=== PATIENT | male | born 1995 ===

== ENCOUNTER 2017-07-03 17:27 | Inpatient (IN) | payer OTHER ==
--- NOTE | 2017-07-03 18:14 | C.PDOC ---
History Of Present Illness <Marcy Woodward - Last Filed: 07/03/17 20:52> <Shanel Meek - Last Filed: 07/03/17 22:08> Patient presents to ED c/o body aches, headache, sore throat, fever x 2 days. He denies chest pain, SOB, abdominal pain, dysuria/hematuria. Admits to 1 episode of nausea/vomiting. (Marcy Woodward) History Per: Patient History/Exam Limitations: no limitations Onset/Duration Of Symptoms: Days (2) Location Of Pain: Throat, Diffuse Myalgias, Headache Associated Symptoms: Fever, Chills, Sore Throat, Nausea, Vomiting. denies: Cough, Nasal Congestion Severity: Moderate <Marcy Woodward - Last Filed: 07/03/17 20:52> <Shanel Meek - Last Filed: 07/03/17 22:08> Time Seen by Provider: 07/03/17 17:38 Chief Complaint (Nursing): Fever Past Medical History Reviewed: Historical Data, Nursing Documentation, Vital Signs - Medical History PMH: No Chronic Diseases Surgical History: No Surg Hx Family History: States: No Known Family Hx - Social History Hx Alcohol Use: No Hx Substance Use: No - Immunization History Hx Tetanus Toxoid Vaccination: No Hx Influenza Vaccination: No Hx Pneumococcal Vaccination: No <Marcy Woodward - Last Filed: 07/03/17 20:52> Vital Signs: Last Vital Signs Temp 98.2 F 07/03/17 21:50 Pulse 110 H 07/03/17 21:50 Resp 20 07/03/17 21:50 BP 109/70 07/03/17 21:50 Pulse Ox 99 07/03/17 21:50 Review Of Systems Except As Marked, All Systems Reviewed And Found Negative. Constitutional: Positive for: Fever, Chills, Other (myalgias/arthralgias) ENT: Positive for: Throat Pain Cardiovascular: Negative for: Chest Pain, Palpitations Respiratory: Negative for: Cough, Shortness of Breath Gastrointestinal: Positive for: Nausea, Vomiting. Negative for: Abdominal Pain , Diarrhea Genitourinary: Negative for: Dysuria, Hematuria <Marcy Woodward - Last Filed: 07/03/17 20:52> Physical Exam - Physical Exam Appears: Non-toxic, In Acute Distress (in moderate discomfort ) Skin: Other (warm to touch) Head: Normacephalic Nose: Normal Oral Mucosa: Moist Throat: Erythema, Exudate (B/L ), No Drooling, No Mass, Other (uvula normal and midline in appearance, tonsils swollen B/L ) Neck: Supple, Other (no meningismus) Cardiovascular: Rhythm Regular (tachycardic and regular) Respiratory: Normal Breath Sounds, No Rales, No Rhonchi, No Wheezing Gastrointestinal/Abdominal: Normal Exam, Bowel Sounds, Soft, No Tenderness Neurological/Psych: Oriented x3 <Marcy Woodward - Last Filed: 07/03/17 20:52> ED Course And Treatment - Laboratory Results Result Diagrams: 07/03/17 19:42 07/03/17 19:42 ECG: Interpreted By Me, Viewed By Me (sinus tachcardia 146bpm, normal axis, no acute ST/T wave changes) ECG Interpretation: Abnormal O2 Sat by Pulse Oximetry: 100 (RA) Pulse Ox Interpretation: Normal - Radiology CXR: Interpreted by Me, Viewed By Me CXR Interpretation: Yes: No Acute Disease. No: Infiltrates Progress Note: Patient given PO tylenol, PO fluids. Influenza and strep swabs ordered. When reassessed, patient continued to be tachycardic and febrile. Blood work, CXR, UA ordered and reviewed. Patient given IV NS bolus, IV toradol , IM decadron, IV zofran. Suspect pharyngitis - tonsils are large, erythematous with exudated B/L - PO Amoxicillin given. <Marcy Woodward - Last Filed: 07/03/17 20:52> - Laboratory Results Result Diagrams: 07/03/17 19:42 07/03/17 19:42 <Shanel Meek - Last Filed: 07/03/17 22:08> Medical Decision Making <Marcy Woodward - Last Filed: 07/03/17 20:52> <Shanel Meek - Last Filed: 07/03/17 22:08> Medical Decision Making: NS IVF continued. The patient was found to have WBC of 0.2, and neutropenic. Patient placed on isolation. HIV and [place]-spot ordered. The case was discussed with Dr. Babb (hospitalist oncall) who agrees to admit the patient to his service. (Shanel Meek) Disposition <Marcy Woodward - Last Filed: 07/03/17 20:52> - Disposition Disposition Time: 20:16 - POA Present On Arrival: None <Shanel Meek - Last Filed: 07/03/17 22:08> - Disposition Disposition: HOSPITALIZED Condition: STABLE - Clinical Impression Clinical Impression: Hypokalemia, Leukopenia, Tachycardia, Neutropenia, Influenza-like illness
[2017-07-03] MEDS ORDERED: Sodium Chloride 0.9% 1,000 ML IV ONE ×2 (18:27→19:06)
[2017-07-03] MEDS ORDERED: Dexamethasone 4 mg/1 ml IM STA (18:31)
[2017-07-03] MEDS ORDERED: Sodium Chloride 0.9% 1,000 ML ONE ×2 (18:49→19:17)
[2017-07-03] MEDS ORDERED: Dexamethasone 4 mg/1 ml ONE (18:49)
[2017-07-03 19:17] LABS: RBC URINE 3 /hpf (0-3); URINE BACTERIA RARE (<OCC); URINE BILIRUBIN NEGATIVE (NEGATIVE); URINE BLOOD NEGATIVE (NEGATIVE); URINE GLUCOSE (UA) NORMAL (Normal); URINE KETONE TRACE mg/dL (NEGATIVE); URINE LEUKOCYTE ESTERASE NEG Leu/uL (Negative); URINE PROTEIN 2+ mg/dL (NEGATIVE); WBC URINE 1 /hpf (0-5)
[2017-07-03 19:18] LABS: URINE COLOR YELLOW (YELLOW)
[2017-07-03 19:45] LABS: HEMATOCRIT 38.2 % (35.0-51.0); MEAN CELL VOLUME 91.3 fL (80.0-94.0); MEAN CORPUSCULAR HEMOGLOBIN 32.1 pg (27.0-31.0); MEAN CORPUSCULAR HGB CONC 35.2 g/dL (33.0-37.0); MEAN PLATELET VOLUME 7.5 fL (7.2-11.7); PLATELET COUNT 215 K/uL (130-400); RED CELL DISTRIBUTION WIDTH 12.3 % (11.5-14.5)
[2017-07-03 19:53] LABS: WHITE BLOOD COUNT 0.2 K/uL (4.8-10.8)
[2017-07-03 20:09] LABS: BLOOD UREA NITROGEN 16 mg/dL (9-20); CALCIUM 7.4 mg/dl (8.6-10.4); CARBON DIOXIDE 19 mmol/L (22-30); CHLORIDE 103 mmol/L (98-107); GFR AFRICAN-AMERICAN > 60; GLUCOSE,RANDOM 137 mg/dL (75-110); POTASSIUM 2.9 mmol/L (3.6-5.2); SODIUM 130 mmol/L (132-148)
[2017-07-03 20:18] LABS: REACTIVE LYMPHOCYTES 16 % (0-0); TOTAL CELLS COUNTED 100
[2017-07-03] MEDS ORDERED: Potassium Chloride 20 mEq ER Tab PO STA (20:19)
[2017-07-03 20:20] LABS: GIANT PLATELETS PRESENT
[2017-07-03 20:21] LABS: LARGE PLATELETS PRESENT; PLATELET CLUMPS PRESENT
--- NOTE | 2017-07-03 22:16 | CP.PCM.HP ---
<Joselyn Reynolds - Last Filed: 07/04/17 05:43> History of Present Illness - History of Present Illness History of Present Illness: CC: Sore throat HPI: patient is a 21M with no significant PMH who presents c/o sore throat. Patient says he woke up with a sore throat yesterday morning and he describes it as burning 6/10 pain made worse by swallowing. Patient says he has not tried anything that has made it better but he did take tamiflu earlier today. Patient also admits to headache but when questioned further he describes it as frontal and maxillary sinus pain. He also admits to associated fever, chills, weakness, body aches, lower back pain radiating to his hamstrings, dizziness upon standing , palpitations, dyspnea, nausea, and vomiting x1. He denies blood in the vomit and says he vomited up the food he ate. Of note, patient says he recently got a new tattoo and has had another one on the opposite arm for a while. He denies ear pain, changes in vision or hearing, chest pain, cough, abdominal pain, diarrhea, constipation, blood in urine and stool, dysuria, calf pain, LE swelling/numbness/tingling, rashes, easy bruising, recent travel, recent sick contacts, changes in his weight, and tick bites. PMD: denies Allergies: denies PMH: Denies PSH: Denies Meds: Denies FH: ME (father) SH: Social drinker, denies tobacco and drug use Present on Admission - Present on Admission Any Indicators Present on Admission: No Review of Systems - Review of Systems All systems: reviewed and no additional remarkable complaints except (as per HPI ) Past Patient History - Past Social History Smoking Status: Never Smoked - PSYCHIATRIC Hx Substance Use: No - SURGICAL HISTORY Hx Surgeries: No Meds Allergies/Adverse Reactions: Allergies Allergy/AdvReac Type Severity Reaction Status Date / Time No Known Allergies Allergy Unverified 07/03/17 17:30 Physical Exam - Constitutional Appears: Non-toxic, No Acute Distress - Head Exam Head Exam: ATRAUMATIC, NORMOCEPHALIC - Eye Exam Eye Exam: EOMI, Normal appearance, PERRL - ENT Exam ENT Exam: Mucous Membranes Moist Additional comments: tonsils enlarged and slightly erythematous but no erosions or exudates noted in oropharynx - Neck Exam Neck exam: Positive for: Tenderness. Negative for: Lymphadenopathy - Respiratory Exam Respiratory Exam: Clear to Auscultation Bilateral, Rales, Rhonchi, NORMAL BREATHING PATTERN. absent: Accessory Muscle Use, Wheezes, Respiratory Distress , Stridor - Cardiovascular Exam Cardiovascular Exam: Tachycardia, REGULAR RHYTHM, +S1, +S2. absent: Bradycardia , Diastolic murmur, Gallop, Rubs, Systolic Murmur - GI/Abdominal Exam GI & Abdominal Exam: Normal Bowel Sounds, Soft. absent: Distended, Guarding, Tenderness - Extremities Exam Extremities exam: Positive for: normal capillary refill, normal inspection, pedal pulses present. Negative for: joint swelling, pedal edema, tenderness Additional comments: no inguinal or axillary lymphadenopathy - Neurological Exam Neurological exam: Alert, Oriented x3 - Psychiatric Exam Psychiatric exam: Normal Affect, Normal Mood - Skin Skin Exam: Dry, Intact, Normal Color, Warm Results - Vital Signs Recent Vital Signs: Last Vital Signs Temp 98.2 F 07/03/17 21:50 Pulse 110 H 07/03/17 21:50 Resp 20 07/03/17 21:50 BP 109/70 07/03/17 21:50 Pulse Ox 99 07/03/17 21:50 - Labs Result Diagrams: 07/03/17 19:42 07/03/17 19:42 Labs: Laboratory Results - last 24 hr 07/03/17 07/03/17 07/03/17 18:06 18:06 19:10 WBC RBC Hgb Hct MCV MCH MCHC RDW Plt Count MPV Neutrophils % (Manual) Lymphocytes % (Manual) Reactive Lymphs % Monocytes % (Manual) Platelet Estimate Plt Clumps, EDTA Large Platelets Giant Platelets Anisocytosis (manual) Macrocytosis (manual) Sodium Potassium Chloride Carbon Dioxide Anion Gap BUN Creatinine Est GFR ( Amer) Est GFR (Non-Af Amer) Random Glucose Lactic Acid Calcium Urine Color Yellow Urine Clarity Clear Urine pH 7.0 Ur Specific [place] 1.029 Urine Protein 2+ H Urine Glucose (UA) Normal Urine Ketones Trace Urine Blood Negative Urine Nitrate Negative Urine Bilirubin Negative Urine Urobilinogen 4.0 Ur Leukocyte Esterase Neg Urine WBC (Auto) 1 Urine RBC (Auto) 3 Urine Bacteria Rare Infectious [place] Assay Influenza Typ A,B (EIA) Negative for flu a/b Grp A Beta Strep Ag Negative 07/03/17 07/03/1717 19:42 19:42 21:13 WBC 0.2 L* RBC 4.18 L Hgb 13.4 Hct 38.2 MCV 91.3 MCH 32.1 H MCHC 35.2 RDW 12.3 Plt Count 215 MPV 7.5 Neutrophils % (Manual) TEST NOT PERFORMED Lymphocytes % (Manual) 82 H Reactive Lymphs % 16 H Monocytes % (Manual) 2 Platelet Estimate Normal Plt Clumps, EDTA Present Large Platelets Present Giant Platelets Present Anisocytosis (manual) Slight Macrocytosis (manual) Slight Sodium 130 L Potassium 2.9 L Chloride 103 Carbon Dioxide 19 L Anion Gap 11 BUN 16 Creatinine 1.2 Est GFR ( Amer) > 60 Est GFR (Non-Af Amer) > 60 Random Glucose 137 H Lactic Acid 0.7 Calcium 7.4 L Urine Color Urine Clarity Urine pH Ur Specific [place] Urine Protein Urine Glucose (UA) Urine Ketones Urine Blood Urine Nitrate Urine Bilirubin Urine Urobilinogen Ur Leukocyte Esterase Urine WBC (Auto) Urine RBC (Auto) Urine Bacteria Infectious [place]berry Assay Influenza Typ A,B (EIA) Grp A Beta Strep Ag 07/03/17 21:30 WBC RBC Hgb Hct MCV MCH MCHC RDW Plt Count MPV Neutrophils % (Manual) Lymphocytes % (Manual) Reactive Lymphs % Monocytes % (Manual) Platelet Estimate Plt Clumps, EDTA Large Platelets Giant Platelets Anisocytosis (manual) Macrocytosis (manual) Sodium Potassium Chloride Carbon Dioxide Anion Gap BUN Creatinine Est GFR ( Amer) Est GFR (Non-Af Amer) Random Glucose Lactic Acid Calcium Urine Color Urine Clarity Urine pH Ur Specific [place] Urine Protein Urine Glucose (UA) Urine Ketones Urine Blood Urine Nitrate Urine Bilirubin Urine Urobilinogen Ur Leukocyte Esterase Urine WBC (Auto) Urine RBC (Auto) Urine Bacteria Infectious [place] Assay Negative Influenza Typ A,B (EIA) Grp A Beta Strep Ag Assessment & Plan - Assessment and Plan (Free Text) Plan: Neutropenic fever * SIRS criteria met * ID consulted ([facility]) - recs appreciated * Heme/Onc conulted ([facility]) - recs appreciated * CXR * ABG * Lactate: 0.7 * HIV * LDH * Blood Culture * Throat culture * Urine culture * UA: 2+ protein * Newberry: negative * Strep: negative * Flu negative * Lyme * NS @ 100 * Meds: Zosyn 4.5 g IV Q6h, Granix 480 mcg SC Once, Tylenol PRN fever Sore throat * Cepacol PRN * See above management Hypokalemia * 2.9 in ED * replaced * monitor Hyperbilirubinemia * Hep panel Prophylactic measures * Pepcid * Ambulates * Zofran PRN nausea <Sidney Babb A - Last Filed: 07/04/17 06:18> Results - Vital Signs Recent Vital Signs: Last Vital Signs Temp 98 F 07/04/17 00:20 Pulse 114 H 07/04/17 00:20 Resp 20 07/04/17 00:20 BP 125/74 07/04/17 00:20 Pulse Ox 98 07/04/17 00:20 - Labs Result Diagrams: 07/03/17 19:42 07/03/17 19:42 Labs: Laboratory Results - last 24 hr 07/03/17 07/03/17 07/03/17 18:06 18:06 19:10 WBC RBC Hgb Hct MCV MCH MCHC RDW Plt Count MPV Neutrophils % (Manual) Lymphocytes % (Manual) Reactive Lymphs % Monocytes % (Manual) Platelet Estimate Plt Clumps, EDTA Large Platelets Giant Platelets Anisocytosis (manual) Macrocytosis (manual) Puncture Site pCO2 pO2 HCO3 ABG pH ABG Total CO2 ABG O2 Saturation ABG Base Excess ABG Hemoglobin ABG Carboxyhemoglobin POC ABG HHb (Measured) ABG Methemoglobin Ruperto Test A-a O2 Difference Respiratory Index Hgb O2 Saturation Liter Flow FiO2 Sodium Potassium Chloride Carbon Dioxide Anion Gap BUN Creatinine Est GFR ( Amer) Est GFR (Non-Af Amer) Random Glucose Lactic Acid Calcium Total Bilirubin Direct Bilirubin AST ALT Alkaline Phosphatase Lactate Dehydrogenase Total Protein Albumin Globulin Albumin/Globulin Ratio Urine Color Yellow Urine Clarity Clear Urine pH 7.0 Ur Specific [place] 1.029 Urine Protein 2+ H Urine Glucose (UA) Normal Urine Ketones Trace Urine Blood Negative Urine Nitrate Negative Urine Bilirubin Negative Urine Urobilinogen 4.0 Ur Leukocyte Esterase Neg Urine WBC (Auto) 1 Urine RBC (Auto) 3 Urine Bacteria Rare Infectious [place] Assay Influenza Typ A,B (EIA) Negative for flu a/b Grp A Beta Strep Ag Negative 07/03/17 07/03/17 07/03/17 19:42 19:42 21:13 WBC 0.2 L* RBC 4.18 L Hgb 13.4 Hct 38.2 MCV 91.3 MCH 32.1 H MCHC 35.2 RDW 12.3 Plt Count 215 MPV 7.5 Neutrophils % (Manual) TEST NOT PERFORMED Lymphocytes % (Manual) 82 H Reactive Lymphs % 16 H Monocytes % (Manual) 2 Platelet Estimate Normal Plt Clumps, EDTA Present Large Platelets Present Giant Platelets Present Anisocytosis (manual) Slight Macrocytosis (manual) Slight Puncture Site pCO2 pO2 HCO3 ABG pH ABG Total CO2 ABG O2 Saturation ABG Base Excess ABG Hemoglobin ABG Carboxyhemoglobin POC ABG HHb (Measured) ABG Methemoglobin Ru[place]to Test A-a O2 Difference Respiratory Index Hgb O2 Saturation Liter Flow FiO2 Sodium 130 L Potassium 2.9 L Chloride 103 Carbon Dioxide 19 L Anion Gap 11 BUN 16 Creatinine 1.2 Est GFR ( Amer) > 60 Est GFR (Non-Af Amer) > 60 Random Glucose 137 H Lactic Acid 0.7 Calcium 7.4 L Total Bilirubin Direct Bilirubin AST ALT Alkaline Phosphatase Lactate Dehydrogenase Total Protein Albumin Globulin Albumin/Globulin Ratio Urine Color Urine Clarity Urine pH Ur Specific [place] Urine Protein Urine Glucose (UA) Urine Ketones Urine Blood Urine Nitrate Urine Bilirubin Urine Urobilinogen Ur Leukocyte Esterase Urine WBC (Auto) Urine RBC (Auto) Urine Bacteria Infectious [place] Assay Influenza Typ A,B (EIA) Grp A Beta Strep Ag 07/03/17 07/03/17 07/03/17 21:30 23:03 23:41 WBC RBC Hgb Hct MCV MCH MCHC RDW Plt Count MPV Neutrophils % (Manual) Lymphocytes % (Manual) Reactive Lymphs % Monocytes % (Manual) Platelet Estimate Plt Clumps, EDTA Large Platelets Giant Platelets Anisocytosis (manual) Macrocytosis (manual) Puncture Site Rr pCO2 29 L pO2 112 H HCO3 21.1 ABG pH 7.41 ABG Total CO2 19.3 L ABG O2 Saturation 99.2 H ABG Base Excess -4.9 L ABG Hemoglobin 14.4 ABG Carboxyhemoglobin 1.5 POC ABG HHb (Measured) 0.8 ABG Methemoglobin 1.1 Ruperto Test Pos A-a O2 Difference 1.0 Respiratory Index 0 Hgb O2 Saturation 96.6 Liter Flow 0 FiO2 21.0 Sodium Potassium Chloride Carbon Dioxide Anion Gap BUN Creatinine Est GFR ( Amer) Est GFR (Non-Af Amer) Random Glucose Lactic Acid Calcium Total Bilirubin 1.4 H Direct Bilirubin 1.1 H AST 38 ALT 34 Alkaline Phosphatase 44 Lactate Dehydrogenase 403 Total Protein 6.3 Albumin 3.5 Globulin 2.8 Albumin/Globulin Ratio 1.2 Urine Color Urine Clarity Urine pH Ur Specific [place] Urine Protein Urine Glucose (UA) Urine Ketones Urine Blood Urine Nitrate Urine Bilirubin Urine Urobilinogen Ur Leukocyte Esterase Urine WBC (Auto) Urine RBC (Auto) Urine Bacteria Infectious [place] Assay Negative Influenza Typ A,B (EIA) Grp A Beta Strep Ag Assessment & Plan - Assessment and Plan (Free Text) Plan: ADDENDUM: I saw and examined this patient shoulder to shoulder with Dr Reynolds. The assessment and plan represent my direct input. 21 years old male with 2 days hx of sorethroat, body aches, headache, lower back pain, fever, chills, nausea, vomits, dizziness, with Temp 102.5F and HR 140 /min, and WBC 0.2cells/microliter and 0% neutrophills. Newberry, Strep and Influenza negative. A&P #. Neutropenic Fever etiology unclear but probably viral in origin r/o leukemia - reverse Isolation - ID Consult - Hematology Consult - Antibiotics Zosyn - Granix - follow HIV antibody/ Lyme/blood and urine cultures/ebstein bar virus #. Hypokalemia. Repleted - Maintenance - Follow Electrolytes #. Trace ketones in urine Probably from vomiting and starvation. ABG shows normal Ph and normal lactate Sidney Babb MD Hospitalist - Date & Time Date: 07/04/17 Time: 06:18
[2017-07-03] MEDS: Piperacill/Tazo 4.5gm in Dex 4.5 GM/100 ML BAG IVPB SCH (22:37)
[2017-07-03 23:12] LABS: ALB/GLOB RATIO 1.2 (1.0-2.1); BILIRUBIN,TOTAL 1.4 mg/dL (0.2-1.3); TOTAL PROTEIN 6.3 g/dL (6.3-8.3)
[2017-07-03 23:13] LABS: BILIRUBIN,DIRECT 1.1 mg/dL (0.0-0.4)
[2017-07-03 23:44] LABS: ABG ALLEN TEST POS; ARTERIAL BLOOD HGB O2 SAT 96.6 % (95.0-98.0); CARBOXYHEMOGLOBIN 1.5 % (0.5-1.5); DRAW SITE RR; HHB 0.8 % (0.0-5.0); METHEMOGLOBIN 1.1 % (0.0-3.0)
[2017-07-03] MEDS: Sodium Chloride 0.9% 1,000 ML IV SCH (23:57)
[2017-07-04] MEDS: Piperacill/Tazo 4.5gm in Dex 4.5 GM/100 ML BAG IVPB SCH ×4 (03:15→21:36)
[2017-07-04] MEDS: Benzocaine/Menthol (Cepacol) Lozenge MT PRN ×3 (03:15→12:00)
[2017-07-04 07:38] LABS: EOS % 11.1 % (0.0-4.0); HEMATOCRIT 40.6 % (35.0-51.0); LYMPH # 0.1 K/uL (1.0-4.3); MEAN CORPUSCULAR HEMOGLOBIN 31.9 pg (27.0-31.0); MEAN CORPUSCULAR HGB CONC 33.9 g/dL (33.0-37.0); MONO % 11.1 % (0.0-10.0); RED CELL DISTRIBUTION WIDTH 12.6 % (11.5-14.5)
[2017-07-04 07:43] LABS: ALB/GLOB RATIO 1.1 (1.0-2.1); ALKALINE PHOSPHATASE 40 U/L (38-126); ALT/SGPT 35 U/L (21-72); AST/SGOT 17 U/L (17-59); BLOOD UREA NITROGEN 13 mg/dL (9-20); CALCIUM 7.7 mg/dl (8.6-10.4); CARBON DIOXIDE 20 mmol/L (22-30); CHLORIDE 104 mmol/L (98-107); GFR AFRICAN-AMERICAN > 60; GLUCOSE,RANDOM 126 mg/dL (75-110); MAGNESIUM 1.7 mg/dL (1.6-2.3); PHOSPHOROUS 1.1 mg/dL (2.5-4.5); POTASSIUM 3.3 mmol/L (3.6-5.2); SODIUM 131 mmol/L (132-148); TOTAL PROTEIN 6.3 g/dL (6.3-8.3)
[2017-07-04 07:46] LABS: MEAN CELL VOLUME 93.9 fL (80.0-94.0); WHITE BLOOD COUNT 0.2 K/uL (4.8-10.8)
[2017-07-04] MEDS: Potassium & Sodium Phosphate PO SCH ×3 (10:45→17:25)
[2017-07-04] MEDS: Potassium Chloride 20 mEq ER Tab PO SCH ×2 (11:03→17:25)
--- NOTE | 2017-07-04 11:34 | CP.PCM.CON ---
History of Present Illness - History of Present Illness History of Present Illness: 21 yo male with no PMH ADMITTED WITH SORE THROAT FEVER X 2DAYS AND FOUND TO HAVE SEVERE NEUTROPENIA NO KNOWN TRAVEL, PMH, FH OR WORKPLACE EXPOSURE - ONLY A NEW TATTOO TO CONT BROAD SPECTRUM ANTIBIOTICS, TELE MONITORING RECC CT SINUSES AND NECK WELL STAT ENT EVAL SEROLOGIES AND CULTURES SENT - MAY NEED BM BX 1M with no significant PMH who presents c/o sore throat- says he woke up with a sore throat yesterday morning and he describes it as burning 6/10 pain made worse by swallowing. he describes it as frontal and maxillary sinus pain. He also admits to associated fever, chills, weakness, body aches, lower back pain radiating to his hamstrings, dizziness upon standing, palpitations, dyspnea, nausea, and vomiting x1. He denies blood in the vomit and says he vomited up the food he ate. Of note, patient says he recently got a new tattoo and has had another one on the opposite arm for a while. He denies ear pain, changes in vision or hearing, chest pain, cough, abdominal pain, diarrhea, constipation, blood in urine and stool, dysuria, calf pain, LE swelling/numbness/tingling, rashes, easy bruising, recent travel, recent sick contacts, changes in his weight, and tick bites. PMD: denies Allergies: denies PMH: Denies PSH: Denies Meds: Denies FH: ME (father) SH: Social drinker, denies tobacco and drug use Review of Systems - Review of Systems All systems: reviewed and no additional remarkable complaints except - Constitutional Constitutional: Anorexia, Chills, Fever, Malaise, Weakness - EENT Eyes: absent: As Per HPI, Blind Spots, Blurred Vision, Change in Vision, Decreased Night Vision, Diplopia, Discharge, Dry Eye, Exophthalmos, Floaters, Irritation, Itchy Eyes, Loss of Peripheral Vision, Pain, Photophobia, Requires Corrective Lenses, Sees Flashes, Spots in Vision, Tunnel Vision, Other Visual Disturbances, Loss of Vision, Other Ears: absent: As Per HPI, Decreased Hearing, Ear Discharge, Ear Pain, Tinnitus, Abnormal Hearing, Disequilibrium, Dizziness, Other Nose/Mouth/Throat: As Per HPI - Cardiovascular Cardiovascular: absent: As Per HPI, Acrocyanosis, Chest Pain, Chest Pain at Rest , Chest Pain with Activity, Claudication, Diaphoresis, Dyspnea, Dyspnea on Exertion, Edema, Irregular Heart Rhythm, Pain Radiating to Arm/Neck/Jaw, Leg Edema, Leg Ulcers, Lightheadedness, Orthopnea, Palpitations, Paroxysmal Nocturnal Dyspnea, Pedal Edema, Radiating Pain, Rapid Heart Rate, Slow Heart Rate, Syncope, Other - Respiratory Respiratory: absent: As Per HPI, Cough, Dyspnea, Hemoptysis, Dyspnea on Exertion , Wheezing, Snoring, Stridor, Pain on Inspiration, Chest Congestion, Excessive Mucous Production, Change in Mucous Color, Pain with Coughing, Other - Gastrointestinal Gastrointestinal: As Per HPI - Genitourinary Genitourinary: absent: As Per HPI, Change in Urinary Stream, Difficulty Urinating, Dysuria, Flank Pain, Hematuria, Pyuria, Nocturia, Urinary Incontinence, Urinary Frequency, Urinary Hesitance, Urinary Urgency, Voiding Freq/Small Amts, Freq UTI, Hx Renal/Bladder Calculi, Hx /Renal Surgery, Bladder Distension, Other - Musculoskeletal Musculoskeletal: absent: As Per HPI, Abnormal Gait, Arthralgias, Atrophy, Back Pain, Deformity, Joint Swelling, Limited Range of Motion, Loss of Height, Muscle Cramps, Muscle Weakness, Myalgias, Neck Pain, Numbness, Radiating Pain into Limb, Stiffness, Tingling, Other - Integumentary Integumentary: absent: As Per HPI, Acne, Alopecia, Bleeding Lesions, Change in Hair, Change in Nails, Change in Pigmentation, Changing Lesions, Dry Skin, Erythema, Furuncle, Hirsutism, Lesions, New Lesions, Non-Healing Lesions, Photosensitivity, Pruritus, Rash, Skin Pain, Skin Ulcer, Sores, Striae, Swelling , Unusual Bruising, Wounds, Jaundice, Other - Neurological Neurological: absent: As Per HPI, Abnormal Gait, Abnormal Hearing, Abnormal Movements, Abnormal Speech, Behavioral Changes, Burning Sensations, Confusion, Convulsions, Disequilibrium, Dizziness, Numbness, Focal Weakness, Frequent Falls , Headaches, Lack of Coordination, Loss of Vision, Memory Loss, Paresthesias, Radicular Pain, Restless Legs, Sensory Deficit, Syncope, Tingling, Tremor, Vertigo, Weakness, Other Visual Disturbances, Other - Psychiatric Psychiatric: absent: As Per HPI, Abnormal Sleep Pattern, Anhedonia, Anxiety, Auditory Hallucinations, Behavioral Changes, Change in Appetite, Change in Libido, Confusion, Depression, Difficulty Concentrating, Hallucinations, Homicidal Ideation, Hopelessness, Irritability, Memory Loss, Mood Swings, Panic Attacks, Paranoia, Suicidal Ideation, Visual Hallucinations, Tactile Hallucinations, Other - Endocrine Endocrine: absent: As Per HPI, Change in Body Appearance, Change in Libido, Cold Intolorance, Deepening of Voice, Excessive Sweating, Fatigue, Flushing, Heat Intolorance, Increase in Ring/Shoe/Hat Size, Palpitations, Polydipsia, Polyphagia, Polyuria, Other - Hematologic/Lymphatic Hematologic: absent: As Per HPI, Easy Bleeding, Easy Bruising, Lymphadenopathy, Other Past Patient History - Past Social History Smoking Status: Never Smoked - CARDIAC Hx Cardiac Disorders: No - PULMONARY Hx Respiratory Disorders: No - NEUROLOGICAL Hx Neurological Disorder: No - HEENT Hx HEENT Problems: No - RENAL Hx Chronic Kidney Disease: No - ENDOCRINE/METABOLIC Hx Endocrine Disorders: No - HEMATOLOGICAL/ONCOLOGICAL Hx Blood Disorders: No - INTEGUMENTARY Hx Dermatological Problems: No - MUSCULOSKELETAL/RHEUMATOLOGICAL Hx Musculoskeletal Disorders: No - GASTROINTESTINAL Hx Gastrointestinal Disorders: No - GENITOURINARY/GYNECOLOGICAL Hx Genitourinary Disorders: No - PSYCHIATRIC Hx Substance Use: No - SURGICAL HISTORY Hx Surgeries: No - ANESTHESIA Hx Anesthesia: No Meds Allergies/Adverse Reactions: Allergies Allergy/AdvReac Type Severity Reaction Status Date / Time No Known Allergies Allergy Unverified 07/03/17 17:30 - Medications Medications: Current Medications Acetaminophen (Tylenol 325mg Tab) 650 mg PO Q4 PRN PRN Reason: Fever >100.4 F Last Admin: 07/04/17 08:27 Dose: 650 mg Benzocaine/Menthol (Cepacol Sore Throat) 1 [place]ott [place] Q2 PRN PRN Reason: Sore Throat Last Admin: 07/04/17 05:15 Dose: 1 scott Famotidine (Pepcid) 20 mg PO BID RASHIDA Piperacillin Sod/Tazobactam Sod (Zosyn 4.5 Gm Iv Premix) 4.5 gm in 100 mls @ 200 mls/hr IVPB Q6H RASHIDA Last Admin: 07/04/17 09:15 Dose: 200 mls/hr Sodium Chloride (Sodium Chloride 0.9%) 1,000 mls @ 100 mls/hr IV .Q10H [facility] Last Admin: 07/03/17 23:57 Dose: 100 mls/hr Doxycycline Hyclate 100 mg/ (Sodium Chloride) 100 mls @ 100 mls/hr IVPB Q12H [facility] Ondansetron HCl (Zofran Inj) 4 mg IVP Q6 PRN PRN Reason: Nausea/Vomiting Pneumococcal Polyvalent Vaccine (Pneumovax 23 Vaccine) 0.5 ml IM .ONCE ONE Stop: 07/05/17 10:01 Potassium Chloride (K-Dur 20 Meq Er Tab) 40 meq PO BID [facility] Stop: 07/05/17 10:01 Potassium Phos/Sodium Phos (Neutra-Phos) 1 pkt PO TID [facility] Stop: 07/05/17 10:01 Saliva Substitute (First Magic Mouthwash) 1 ml PO ACHS [facility] Physical Exam - Constitutional Appears: Toxic, In Acute Distress - Head Exam Head Exam: NORMOCEPHALIC - Eye Exam Eye Exam: PERRL. absent: Scleral icterus - ENT Exam ENT Exam: Mucous Membranes Dry, Normal External Ear Exam - Neck Exam Neck exam: Positive for: Lymphadenopathy - Respiratory Exam Respiratory Exam: Decreased Breath Sounds, Clear to Auscultation Bilateral - Cardiovascular Exam Cardiovascular Exam: Tachycardia, REGULAR RHYTHM, +S1, +S2 - GI/Abdominal Exam GI & Abdominal Exam: Diminished Bowel Sounds, Soft. absent: Tenderness - Rectal Exam Rectal Exam: Deferred - Exam Exam: NORMAL INSPECTION - Extremities Exam Extremities exam: Negative for: pedal edema - Back Exam Back exam: absent: CVA tenderness (L), CVA tenderness (R) - Neurological Exam Neurological exam: Alert, CN II-XII Intact, Oriented x3, Reflexes Normal - Psychiatric Exam Psychiatric exam: Anxious, Normal Affect, Normal Mood - Skin Skin Exam: Dry Results - Vital Signs Recent Vital Signs: Last Vital Signs Temp 99.5 F 07/04/17 08:06 Pulse 114 H 07/04/17 08:06 Resp 20 07/04/17 08:06 BP 108/67 07/04/17 08:06 Pulse Ox 100 07/04/17 08:06 - Labs Result Diagrams: 07/05/17 06:51 07/05/17 06:51 Labs: Laboratory Results - last 24 hr 07/03/17 07/03/17 07/03/17 18:06 18:06 19:10 WBC RBC Hgb Hct MCV MCH MCHC RDW Plt Count MPV Neut % (Auto) Lymph % (Auto) Adams % (Auto) Eos % (Auto) Baso % (Auto) Neut # Lymph # Adams # Eos # Baso # Total Counted Neutrophils % (Manual) Band Neutrophils % Lymphocytes % (Manual) Reactive Lymphs % Monocytes % (Manual) Eosinophils % (Manual) Basophils % (Manual) Metamyelocytes % Myelocytes % Promyelocytes % Blast Cells % Plasma Cell % (Manual) Nucleated RBC % Hypersegmented Polys Smudge Cells Toxic Granulation Dohle Bodies Malou Rods Platelet Estimate Plt Clumps, EDTA Large Platelets Giant Platelets RBC Morphology Polychromasia Hypochromasia (manual) Poikilocytosis (manual Basophilic Stippling Anisocytosis (manual) Microcytosis (manual) Macrocytosis (manual) Spherocytes Sickle Cells Target Cells Tear Drop Cells Ovalocytes Stomatocytes Helmet Cells [place] Bodies Krishna Cells Acanthocytes (Spur) Rouleaux Schistocytes Puncture Site pCO2 pO2 HCO3 ABG pH ABG Total CO2 ABG O2 Saturation ABG Base Excess ABG Hemoglobin ABG Carboxyhemoglobin POC ABG HHb (Measured) ABG Methemoglobin Ruperto Test A-a O2 Difference Respiratory Index Hgb O2 Saturation Liter Flow FiO2 Sodium Potassium Chloride Carbon Dioxide Anion Gap BUN Creatinine Est GFR ( Amer) Est GFR (Non-Af Amer) Random Glucose Lactic Acid Calcium Phosphorus Magnesium Total Bilirubin Direct Bilirubin AST ALT Alkaline Phosphatase Lactate Dehydrogenase Total Protein Albumin Globulin Albumin/Globulin Ratio Urine Color Yellow Urine Clarity Clear Urine pH 7.0 Ur Specific [place] 1.029 Urine Protein 2+ H Urine Glucose (UA) Normal Urine Ketones Trace Urine Blood Negative Urine Nitrate Negative Urine Bilirubin Negative Urine Urobilinogen 4.0 Ur Leukocyte Esterase Neg Urine WBC (Auto) 1 Urine RBC (Auto) 3 Urine Bacteria Rare Hepatitis A IgM Ab Hep Bs Antigen Hep B Core IgM Ab Hepatitis C Antibody HIV 1&2 Antibody Screen Infectious Adams Assay Influenza Typ A,B (EIA) Negative for flu a/b Grp A Beta Strep Ag Negative 07/03/17 07/03/17 07/03/17 19:42 19:42 21:13 WBC 0.2 L* RBC 4.18 L Hgb 13.4 Hct 38.2 MCV 91.3 MCH 32.1 H MCHC 35.2 RDW 12.3 Plt Count 215 MPV 7.5 Neut % (Auto) Lymph % (Auto) Adams % (Auto) Eos % (Auto) Baso % (Auto) Neut # Lymph # Adams # Eos # Baso # Total Counted Neutrophils % (Manual) TEST NOT PERFORMED Band Neutrophils % Lymphocytes % (Manual) 82 H Reactive Lymphs % 16 H Monocytes % (Manual) 2 Eosinophils % (Manual) Basophils % (Manual) Metamyelocytes % Myelocytes % Promyelocytes % Blast Cells % Plasma Cell % (Manual) Nucleated RBC % Hypersegmented Polys Smudge Cells Toxic Granulation Dohle Bodies Malou Rods Platelet Estimate Normal Plt Clumps, EDTA Present Large Platelets Present Giant Platelets Present RBC Morphology Polychromasia Hypochromasia (manual) Poikilocytosis (manual Basophilic Stippling Anisocytosis (manual) Slight Microcytosis (manual) Macrocytosis (manual) Slight Spherocytes Sickle Cells Target Cells Tear Drop Cells Ovalocytes Stomatocytes Helmet Cells [place] Bodies [place] Cells Acanthocytes (Spur) Rouleaux Schistocytes Puncture Site pCO2 pO2 HCO3 ABG pH ABG Total CO2 ABG O2 Saturation ABG Base Excess ABG Hemoglobin ABG Carboxyhemoglobin POC ABG HHb (Measured) ABG Methemoglobin Ruperto Test A-a O2 Difference Respiratory Index Hgb O2 Saturation Liter Flow FiO2 Sodium 130 L Potassium 2.9 L Chloride 103 Carbon Dioxide 19 L Anion Gap 11 BUN 16 Creatinine 1.2 Est GFR ( Amer) > 60 Est GFR (Non-Af Amer) > 60 Random Glucose 137 H Lactic Acid Calcium 7.4 L Phosphorus Magnesium Total Bilirubin Direct Bilirubin AST ALT Alkaline Phosphatase Lactate Dehydrogenase Total Protein Albumin Globulin Albumin/Globulin Ratio Urine Color Urine Clarity Urine pH Ur Specific [place] Urine Protein Urine Glucose (UA) Urine Ketones Urine Blood Urine Nitrate Urine Bilirubin Urine Urobilinogen Ur Leukocyte Esterase Urine WBC (Auto) Urine RBC (Auto) Urine Bacteria Hepatitis A IgM Ab Hep Bs Antigen Hep B Core IgM Ab Hepatitis C Antibody HIV 1&2 Antibody Screen Negative Infectious [place] Assay Influenza Typ A,B (EIA) Grp A Beta Strep Ag 07/03/17 07/03/17 07/03/17 21:13 21:30 23:03 WBC RBC Hgb Hct MCV MCH MCHC RDW Plt Count MPV Neut % (Auto) Lymph % (Auto) [place] % (Auto) Eos % (Auto) Baso % (Auto) Neut # Lymph # [place] # Eos # Baso # Total Counted Neutrophils % (Manual) Band Neutrophils % Lymphocytes % (Manual) Reactive Lymphs % Monocytes % (Manual) Eosinophils % (Manual) Basophils % (Manual) Metamyelocytes % Myelocytes % Promyelocytes % Blast Cells % Plasma Cell % (Manual) Nucleated RBC % Hypersegmented Polys Smudge Cells Toxic Granulation Dohle Bodies Malou Rods Platelet Estimate Plt Clumps, EDTA Large Platelets Giant Platelets RBC Morphology Polychromasia Hypochromasia (manual) Poikilocytosis (manual Basophilic Stippling Anisocytosis (manual) Microcytosis (manual) Macrocytosis (manual) Spherocytes Sickle Cells Target Cells Tear Drop Cells Ovalocytes Stomatocytes Helmet Cells [place] Bodies Krishna Cells Acanthocytes (Spur) Rouleaux Schistocytes Puncture Site pCO2 pO2 HCO3 ABG pH ABG Total CO2 ABG O2 Saturation ABG Base Excess ABG Hemoglobin ABG Carboxyhemoglobin POC ABG HHb (Measured) ABG Methemoglobin Ruperto Test A-a O2 Difference Respiratory Index Hgb O2 Saturation Liter Flow FiO2 Sodium Potassium Chloride Carbon Dioxide Anion Gap BUN Creatinine Est GFR ( Amer) Est GFR (Non-Af Amer) Random Glucose Lactic Acid 0.7 Calcium Phosphorus Magnesium Total Bilirubin 1.4 H Direct Bilirubin 1.1 H AST 38 ALT 34 Alkaline Phosphatase 44 Lactate Dehydrogenase 403 Total Protein 6.3 Albumin 3.5 Globulin 2.8 Albumin/Globulin Ratio 1.2 Urine Color Urine Clarity Urine pH Ur Specific [place] Urine Protein Urine Glucose (UA) Urine Ketones Urine Blood Urine Nitrate Urine Bilirubin Urine Urobilinogen Ur Leukocyte Esterase Urine WBC (Auto) Urine RBC (Auto) Urine Bacteria Hepatitis A IgM Ab Hep Bs Antigen Hep B Core IgM Ab Hepatitis C Antibody HIV 1&2 Antibody Screen Infectious [place] Assay Negative Influenza Typ A,B (EIA) Grp A Beta Strep Ag 07/03/17 07/03/17 07/04/17 23:15 23:41 07:11 WBC 0.2 L* RBC 4.33 L Hgb 13.8 Hct 40.6 MCV 93.9 D MCH 31.9 H MCHC 33.9 RDW 12.6 Plt Count 198 MPV 8.0 Neut % (Auto) 2.8 L Lymph % (Auto) 75.0 H Adams % (Auto) 11.1 H Eos % (Auto) 11.1 H Baso % (Auto) 0.0 Neut # 0.0 L Lymph # 0.1 L Adams # 0.0 Eos # 0.0 Baso # 0.0 Total Counted Cancelled Neutrophils % (Manual) Cancelled Band Neutrophils % Cancelled Lymphocytes % (Manual) Cancelled Reactive Lymphs % Cancelled Monocytes % (Manual) Cancelled Eosinophils % (Manual) Cancelled Basophils % (Manual) Cancelled Metamyelocytes % Cancelled Myelocytes % Cancelled Promyelocytes % Cancelled Blast Cells % Cancelled Plasma Cell % (Manual) Cancelled Nucleated RBC % Cancelled Hypersegmented Polys Cancelled Smudge Cells Cancelled Toxic Granulation Cancelled Dohle Bodies Cancelled Malou Rods Cancelled Platelet Estimate Cancelled Plt Clumps, EDTA Cancelled Large Platelets Cancelled Giant Platelets Cancelled RBC Morphology Cancelled Polychromasia Cancelled Hypochromasia (manual) Cancelled Poikilocytosis (manual Cancelled Basophilic Stippling Cancelled Anisocytosis (manual) Cancelled Microcytosis (manual) Cancelled Macrocytosis (manual) Cancelled Spherocytes Cancelled Sickle Cells Cancelled Target Cells Cancelled Tear Drop Cells Cancelled Ovalocytes Cancelled Stomatocytes Cancelled Helmet Cells Cancelled [place] Bodies Cancelled [place] Cells Cancelled Acanthocytes (Spur) Cancelled Rouleaux Cancelled Schistocytes Cancelled Puncture Site Rr pCO2 29 L pO2 112 H HCO3 21.1 ABG pH 7.41 ABG Total CO2 19.3 L ABG O2 Saturation 99.2 H ABG Base Excess -4.9 L ABG Hemoglobin 14.4 ABG Carboxyhemoglobin 1.5 POC ABG HHb (Measured) 0.8 ABG Methemoglobin 1.1 Ruperto Test Pos A-a O2 Difference 1.0 Respiratory Index 0 Hgb O2 Saturation 96.6 Liter Flow 0 FiO2 21.0 Sodium Potassium Chloride Carbon Dioxide Anion Gap BUN Creatinine Est GFR ( Amer) Est GFR (Non-Af Amer) Random Glucose Lactic Acid Calcium Phosphorus Magnesium Total Bilirubin Direct Bilirubin AST ALT Alkaline Phosphatase Lactate Dehydrogenase Total Protein Albumin Globulin Albumin/Globulin Ratio Urine Color Urine Clarity Urine pH Ur Specific [place] Urine Protein Urine Glucose (UA) Urine Ketones Urine Blood Urine Nitrate Urine Bilirubin Urine Urobilinogen Ur Leukocyte Esterase Urine WBC (Auto) Urine RBC (Auto) Urine Bacteria Hepatitis A IgM Ab Negative Hep Bs Antigen Negative Hep B Core IgM Ab Negative Hepatitis C Antibody Negative HIV 1&2 Antibody Screen Infectious [place] Assay Influenza Typ A,B (EIA) Grp A Beta Strep Ag 07/04/17 07:11 WBC RBC Hgb Hct MCV MCH MCHC RDW Plt Count MPV Neut % (Auto) Lymph % (Auto) [place] % (Auto) Eos % (Auto) Baso % (Auto) Neut # Lymph # Adams # Eos # Baso # Total Counted Neutrophils % (Manual) Band Neutrophils % Lymphocytes % (Manual) Reactive Lymphs % Monocytes % (Manual) Eosinophils % (Manual) Basophils % (Manual) Metamyelocytes % Myelocytes % Promyelocytes % Blast Cells % Plasma Cell % (Manual) Nucleated RBC % Hypersegmented Polys Smudge Cells Toxic Granulation Dohle Bodies Malou Rods Platelet Estimate Plt Clumps, EDTA Large Platelets Giant Platelets RBC Morphology Polychromasia Hypochromasia (manual) Poikilocytosis (manual Basophilic Stippling Anisocytosis (manual) Microcytosis (manual) Macrocytosis (manual) Spherocytes Sickle Cells Target Cells Tear Drop Cells Ovalocytes Stomatocytes Helmet Cells [place] Bodies Krishna Cells Acanthocytes (Spur) Rouleaux Schistocytes Puncture Site pCO2 pO2 HCO3 ABG pH ABG Total CO2 ABG O2 Saturation ABG Base Excess ABG Hemoglobin ABG Carboxyhemoglobin POC ABG HHb (Measured) ABG Methemoglobin Ruperto Test A-a O2 Difference Respiratory Index Hgb O2 Saturation Liter Flow FiO2 Sodium 131 L Potassium 3.3 L Chloride 104 Carbon Dioxide 20 L Anion Gap 11 BUN 13 Creatinine 1.2 Est GFR ( Amer) > 60 Est GFR (Non-Af Amer) > 60 Random Glucose 126 H Lactic Acid Calcium 7.7 L Phosphorus 1.1 L Magnesium 1.7 Total Bilirubin 2.0 H Direct Bilirubin AST 17 D ALT 35 Alkaline Phosphatase 40 Lactate Dehydrogenase Total Protein 6.3 Albumin 3.3 L Globulin 3.0 Albumin/Globulin Ratio 1.1 Urine Color Urine Clarity Urine pH Ur Specific [place] Urine Protein Urine Glucose (UA) Urine Ketones Urine Blood Urine Nitrate Urine Bilirubin Urine Urobilinogen Ur Leukocyte Esterase Urine WBC (Auto) Urine RBC (Auto) Urine Bacteria Hepatitis A IgM Ab Hep Bs Antigen Hep B Core IgM Ab Hepatitis C Antibody HIV 1&2 Antibody Screen Infectious Adams Assay Influenza Typ A,B (EIA) Grp A Beta Strep Ag Assessment & Plan (1) Influenza-like illness Status: Acute (2) Leukopenia Status: Acute (3) Neutropenia Status: Acute (4) Tachycardia Status: Acute
[2017-07-04] MEDS: Mag&Al/Simet/Diphen/Lido 237 ML KIT PO SCH ×3 (12:00→22:52)
[2017-07-04] MEDS ORDERED: Iodixanol 320 mg/ml 150 ml Bottle IV ONE (12:37)
[2017-07-04] MEDS: Sodium Chloride 0.9% 1,000 ML IV SCH ×2 (13:03→20:01)
--- NOTE | 2017-07-04 13:35 | CT ---
PROCEDURE: CT SINUSES WITHOUT CONTRAST HISTORY: r/o sinusitis COMPARISON: None TECHNIQUE: Contiguous axial CT images of the paranasal sinuses were obtained. Coronal and sagittal reformats were generated. Radiation dose: Total exam DLP = 654.18 mGy-cm. This CT exam was performed using one or more of the following dose reduction techniques: Automated exposure control, adjustment of the mA and/or kV according to patient size, and/or use of iterative reconstruction technique. FINDINGS: FRONTAL SINUSES: The frontal sinuses are well developed and well aerated without mucosal thickening or fluid. ETHMOID SINUSES: The ethmoid air cells are well developed. There is mild scattered mucosal thickening in the ethmoid air cells. SPHENOID SINUSES: The sphenoid sinus is well developed. There is a retention cyst/ polyp in the left sphenoid chamber and mild mucosal thickening in the left posterior sphenoid chamber. No fluid. MAXILLARY SINUSES: The maxillary sinuses are well developed. There is a small retention cyst/ polyp in the left lateral maxillary sinus and mild mucosal thickening in bilateral maxillary alveolus. SINUS DRAINAGE: Osteomeatal complexes, fronto -ethmoid recesses and sphenoethmoid recesses clear. NASAL SEPTUM: Mild deviation to the right. No destructive lesion. Turbinates: There is a small right middle turbinate [place]. Otherwise, the turbinates are unremarkable. SKULL BASE: Unremarkable. TEMPORAL BONES: Middle ears and mastoid grossly unremarkable. OTHER FINDINGS: Incompletely imaged is a large low-attenuation lesion in the right frontal lobe. IMPRESSION: 1. Mild chronic ethmoid, maxillary and sphenoid sinusitis with retention cysts/ polyps in the left maxillary sinus and left sphenoid chamber. No acute sinusitis. 2. Incompletely imaged low-density lesion in the right frontal lobe. A dedicated MRI of the brain without and with intravenous contrast is recommended for further evaluation.
--- NOTE | 2017-07-04 14:09 | CT ---
PROCEDURE: CT NECK WITH CONTRAST HISTORY: Neutropenic fever, dysphagia COMPARISON: None TECHNIQUE: CT of the neck with intravenous contrast. Coronal and sagittal reformats generated. Intravenous contrast dose: 100 mL Visipaque 320 Radiation dose: DLP 986.79 mGy-cm This CT exam was performed using one or more of the following dose reduction techniques: Automated exposure control, adjustment of the mA and/or kV according to patient size, and/or use of iterative reconstruction technique. FINDINGS: NASOPHARYNX: There is severe adenoid hypertrophy. SUPRAHYOID NECK: There is severe enlargement of bilateral palatine tonsils with ill-defined low density within the tonsils, the right tonsil larger than the left. There is moderate narrowing of the oropharyngeal airway. The oral cavity, parapharyngeal space and retropharyngeal space. INFRAHYOID NECK: The larynx, hypopharynx, and supraglottic space. Vocal cords intact. GLANDS: Parotid and submandibular glands unremarkable. Normal size thyroid gland, without nodule. LYMPH NODES: Bilateral upper cervical chain lymph nodes are enlarged with ill-defined lymph node margins and stranding of the head the ning fat planes. CERVICAL SPINE: No fracture or focal lesion. VASCULAR STRUCTURES: Unremarkable. OTHER FINDINGS: None. IMPRESSION: 1. Findings are most compatible with acute tonsillitis with reactive/ infectious upper cervical lymphadenopathy. Abnormal fluid density is identified in the tonsils without definite evidence for drainable peritonsillar abscess. 2. Severe adenoid hypertrophy.
--- NOTE | 2017-07-04 15:35 | CP.PCM.PN ---
<Nikia Johnson - Last Filed: 07/04/17 15:51> Subjective - Date & Time of Evaluation Date of Evaluation: 07/04/17 Time of Evaluation: 09:00 - Subjective Subjective: Medicine Note for Hospitalist Service - Dr. Ruthy Griggs Patient was seen and examined at bedside. Patient reports he has extreme difficulty swallowing his saliva, liquids, and cannot tolerate solid food. He felt feverish for the past 2 days. Denied recent travel, sick contacts, any family history of lymphoma. Denied headache, chest pain, SOB, abdominal pain, n/ v/d/c, or urinary symptoms. Objective - Vital Signs/Intake and Output Vital Signs (last 24 hours): Temp Pulse Resp BP Pulse Ox 98.9 F 114 H 20 108/67 100 07/04/17 12:33 07/04/17 08:06 07/04/17 08:06 07/04/17 08:06 07/04/17 08:06 Intake and Output: 07/04/17 07/04/17 06:59 18:59 Intake Total 3350 1450 Output Total 1900 1500 Balance 1450 -50 - Medications Medications: Current Medications Acetaminophen (Tylenol 325mg Tab) 650 mg PO Q4 PRN PRN Reason: Fever >100.4 F Last Admin: 07/04/17 08:27 Dose: 650 mg Benzocaine/Menthol (Cepacol Sore Throat) 1 scott MT Q2 PRN PRN Reason: Sore Throat Last Admin: 07/04/17 12:00 Dose: 1 scott Famotidine (Pepcid) 20 mg PO BID [facility] Last Admin: 07/04/17 11:45 Dose: 20 mg Piperacillin Sod/Tazobactam Sod (Zosyn 4.5 Gm Iv Premix) 4.5 gm in 100 mls @ 200 mls/hr IVPB Q6H [facility] Last Admin: 07/04/17 09:15 Dose: 200 mls/hr Sodium Chloride (Sodium Chloride 0.9%) 1,000 mls @ 100 mls/hr IV .Q10H [facility] Last Admin: 07/04/17 13:03 Dose: 100 mls/hr Doxycycline Hyclate 100 mg/ (Sodium Chloride) 100 mls @ 100 mls/hr IVPB Q12H [facility] Last Admin: 07/04/17 13:09 Dose: 100 mls/hr Ondansetron HCl (Zofran Inj) 4 mg IVP Q6 PRN PRN Reason: Nausea/Vomiting Pneumococcal Polyvalent Vaccine (Pneumovax 23 Vaccine) 0.5 ml IM .ONCE ONE Stop: 07/05/17 10:01 Potassium Chloride (K-Dur 20 Meq Er Tab) 40 meq PO BID [facility] Stop: 07/05/17 10:01 Last Admin: 07/04/17 11:03 Dose: 40 meq Potassium Phos/Sodium Phos (Neutra-Phos) 1 pkt PO TID [facility] Stop: 07/05/17 10:01 Last Admin: 07/04/17 10:45 Dose: 1 pkt Saliva Substitute (First Magic Mouthwash) 1 ml PO ACHS [facility] Last Admin: 07/04/17 12:00 Dose: 1 ml - Labs Labs: 07/04/17 07:11 07/04/17 07:11 Assessment and Plan - Assessment and Plan (Free Text) Plan: Neutropenic Fever ID consulted (Castillo) - recs appreciated Heme/Onc consulted (To) - recs appreciated Neutropenic precautions Labs/Imaging: Lactate: 0.7 Blood Culture Throat culture Urine culture [place]: negative Strep: negative Flu: negative Group A strep - negative Peripheral Smear - normal HIV Screen - negative HIV reflex - pending Monospot - pending EBV- pending Kady - pending Anaplasma - pending Lyme - pending NS @ 100 Zosyn 4.5 g IV Q6h, Doxy 100mg IVP Q12H Granix 480 mcg SC Once Tylenol PRN fever, Zofran PRN nausea Odynophagia Peritonsillar Abscess ENT consulted - Dr. Kelly- help appreciated CLD - as patient tolerates Imaging: CXR - No active pulmonary disease. (Noted narrowing in airway) CT Neck Soft Tissue: 1. Findings are most compatible with acute tonsillitis with reactive/ infectious upper cervical lymphadenopathy. Abnormal fluid density is identified in the tonsils without definite evidence for drainable peritonsillar abscess. 2. Severe adenoid hypertrophy. CT Sinuses: 1. Mild chronic ethmoid, maxillary and sphenoid sinusitis with retention cysts/ polyps in the left maxillary sinus and left sphenoid chamber. No acute sinusitis. 2. Incompletely imaged low-density lesion in the right frontal lobe. A dedicated MRI of the brain without and with intravenous contrast is recommended for further evaluation. Medications: Cepacol PRN. magic mouth wash PRN Zosyn 4.5 g IV Q6h, Doxy 100mg IVP Q12H Chronic Sinusitis Zosyn 4.5 g IV Q6h, Doxy 100mg IVP Q12H Hyperbilirubinemia Hep panel negative Prophylactic measures Pepcid Ambulates DW Elizabeth Vanessa DO, PGY-1 <Ashvin Griggs H - Last Filed: 07/05/17 07:41> Objective - Vital Signs/Intake and Output Vital Signs (last 24 hours): Temp Pulse Resp BP Pulse Ox 99.6 F 148 H 22 112/59 L 100 07/05/17 01:11 07/05/17 00:00 07/05/17 00:00 07/05/17 00:00 07/05/17 00:00 Intake and Output: 07/05/17 07/05/17 06:59 18:59 Intake Total 1000 Balance 1000 - Medications Medications: Current Medications Acetaminophen (Tylenol 325mg Tab) 650 mg PO Q4 PRN PRN Reason: Fever >100.4 F Last Admin: 07/05/17 00:11 Dose: 650 mg Benzocaine/Menthol (Cepacol Sore Throat) 1 scott MT Q2 PRN PRN Reason: Sore Throat Last Admin: 07/04/17 12:00 Dose: 1 scott Famotidine (Pepcid) 20 mg PO BID [facility] Last Admin: 07/04/17 17:25 Dose: 20 mg Piperacillin Sod/Tazobactam Sod (Zosyn 4.5 Gm Iv Premix) 4.5 gm in 100 mls @ 200 mls/hr IVPB Q6H [facility] Last Admin: 07/05/17 04:25 Dose: 200 mls/hr Sodium Chloride (Sodium Chloride 0.9%) 1,000 mls @ 100 mls/hr IV .Q10H [facility] Last Admin: 07/05/17 05:51 Dose: Not Given Doxycycline Hyclate 100 mg/ (Sodium Chloride) 100 mls @ 100 mls/hr IVPB Q12H [facility] Last Admin: 07/05/17 00:13 Dose: 100 mls/hr Ondansetron HCl (Zofran Inj) 4 mg IVP Q6 PRN PRN Reason: Nausea/Vomiting Pneumococcal Polyvalent Vaccine (Pneumovax 23 Vaccine) 0.5 ml IM .ONCE ONE Stop: 07/05/17 10:01 Potassium Chloride (K-Dur 20 Meq Er Tab) 40 meq PO BID [facility] Stop: 07/05/17 10:01 Last Admin: 07/04/17 17:25 Dose: 40 meq Potassium Phos/Sodium Phos (Neutra-Phos) 1 pkt PO TID [facility] Stop: 07/05/17 10:01 Last Admin: 07/04/17 17:25 Dose: 1 pkt Saliva Substitute (First Magic Mouthwash) 1 ml PO ACHS [facility] Last Admin: 07/04/17 22:52 Dose: 1 ml - Labs Labs: 07/05/17 06:51 07/05/17 06:51 Attending/Attestation - Attestation I have personally seen and examined this patient.: Yes I have fully participated in the care of the patient.: Yes I have reviewed all pertinent clinical information, including history, physical exam and plan: Yes Notes (Text): 07/05/17 07:41 Medical attending: Patient was seen and examined by me as well, but agree with the above note by medical coding manager. Later on in the day I came back down and I spoke with the patient's close family members. The patient was okay with this. The patient was still having fevers recorded as well as neutropenia The initial HIV testing was negative, there is additional HIV testing pending at this time. As documented above in the resident note the patient was having a lot of pain particularly in his neck area. Was a chest film done and when I looked at the PA film it looked almost as if he had a steeple-like appearing area of his trachea. We went to radiology and asked if this could possibly represent H influenza. However per discussion with radiology this did not appear to be the case. We opted to get a CT scan of the soft tissue of the neck. The findings did suggests acute tonsillitis as well as upper region lymphadenopathy. I did explain this to the patient as well as the patient's family members that normally we would see an elevated white blood cell count however there is neutropenia. Regardless we still have the patient on IV antibiotics. Hematology/oncology was consulted. Possible concern is this might be some sort of lymphoma or leukemia and he may require a bone marrow biopsy, or possible some sort of biopsy within the neck region. Thank you very much, Ashvin Griggs
[2017-07-04 17:43] LABS: REACTIVE LYMPHOCYTES 5 % (0-0); TOTAL CELLS COUNTED 100
[2017-07-04 18:23] LABS: NEUTROPHIL 0 % (50-75)
--- NOTE | 2017-07-04 19:19 | CARD ---
APPROVED REPORT EKG Measurement Heart [id number] CO [id number] <Conclusion> Sinus tachycardia Possible Left atrial enlargement Borderline ECG
[2017-07-04] MEDS ORDERED: Lidocaine 2% w Epi 1:100,000 Inj IJ ONE (22:00)
[2017-07-05] MEDS: Sodium Chloride 0.9% 1,000 ML IV SCH ×3 (00:10→16:14)
[2017-07-05] MEDS: Piperacill/Tazo 4.5gm in Dex 4.5 GM/100 ML BAG IVPB SCH ×3 (04:25→16:25)
[2017-07-05 07:20] LABS: ALB/GLOB RATIO 0.8 (1.0-2.1); ALKALINE PHOSPHATASE 29 U/L (38-126); ALT/SGPT 38 U/L (21-72); AST/SGOT 12 U/L (17-59); BILIRUBIN,TOTAL 1.8 mg/dL (0.2-1.3); BLOOD UREA NITROGEN 10 mg/dL (9-20); CALCIUM 7.6 mg/dl (8.6-10.4); CARBON DIOXIDE 22 mmol/L (22-30); CHLORIDE 102 mmol/L (98-107); GFR AFRICAN-AMERICAN > 60; GLUCOSE,RANDOM 123 mg/dL (75-110); MAGNESIUM 1.7 mg/dL (1.6-2.3); PHOSPHOROUS 1.1 mg/dL (2.5-4.5); POTASSIUM 3.2 mmol/L (3.6-5.2); SODIUM 134 mmol/L (132-148)
[2017-07-05 07:22] LABS: HEMATOCRIT 37.5 % (35.0-51.0); MEAN CELL VOLUME 92.3 fL (80.0-94.0); MEAN CORPUSCULAR HGB CONC 34.7 g/dL (33.0-37.0); MEAN PLATELET VOLUME 8.1 fL (7.2-11.7); RED CELL DISTRIBUTION WIDTH 12.4 % (11.5-14.5)
[2017-07-05 07:31] LABS: WHITE BLOOD COUNT 0.2 K/uL (4.8-10.8)
[2017-07-05 07:52] VITALS: PULSE 145
[2017-07-05] MEDS: Mag&Al/Simet/Diphen/Lido 237 ML KIT PO SCH ×3 (08:11→16:46)
[2017-07-05] MEDS: Potassium Chloride 20 mEq ER Tab PO SCH (09:09)
[2017-07-05] MEDS: Potassium & Sodium Phosphate PO SCH ×4 (09:11→17:00)
--- NOTE | 2017-07-05 09:12 | CP.PCM.PN ---
<Nikia Johnson - Last Filed: 07/05/17 15:13> Subjective - Date & Time of Evaluation Date of Evaluation: 07/05/17 Time of Evaluation: 07:00 - Subjective Subjective: Medicine Note for Hospitalist Service - Dr. Ruthy Griggs Patient was seen and examined at bedside. Patient reports he is able to swallow better today, tolerate liquids. Denied headache, chest pain, SOB, abdominal pain , n/v/d/c, or urinary symptoms. Objective - Vital Signs/Intake and Output Vital Signs (last 24 hours): Temp Pulse Resp BP Pulse Ox 99.3 F 145 H 20 104/61 98 07/05/17 07:51 07/05/17 07:51 07/05/17 07:51 07/05/17 07:51 07/05/17 07:51 Intake and Output: 07/05/17 07/05/17 06:59 18:59 Intake Total 1000 1150 Balance 1000 1150 - Medications Medications: Current Medications Acetaminophen (Tylenol 325mg Tab) 650 mg PO Q6H [facility] Stop: 07/06/17 04:01 Benzocaine/Menthol (Cepacol Sore Throat) 1 scott MT Q2 PRN PRN Reason: Sore Throat Last Admin: 07/04/17 12:00 Dose: 1 scott Famotidine (Pepcid) 20 mg PO BID [facility] Last Admin: 07/04/17 17:25 Dose: 20 mg Piperacillin Sod/Tazobactam Sod (Zosyn 4.5 Gm Iv Premix) 4.5 gm in 100 mls @ 200 mls/hr IVPB Q6H [facility] Last Admin: 07/05/17 04:25 Dose: 200 mls/hr Sodium Chloride (Sodium Chloride 0.9%) 1,000 mls @ 100 mls/hr IV .Q10H [facility] Last Admin: 07/05/17 05:51 Dose: Not Given Doxycycline Hyclate 100 mg/ (Sodium Chloride) 100 mls @ 100 mls/hr IVPB Q12H [facility] Last Admin: 07/05/17 00:13 Dose: 100 mls/hr Ondansetron HCl (Zofran Inj) 4 mg IVP Q6 PRN PRN Reason: Nausea/Vomiting Pneumococcal Polyvalent Vaccine (Pneumovax 23 Vaccine) 0.5 ml IM .ONCE ONE Stop: 07/05/17 10:01 Potassium Chloride (K-Dur 20 Meq Er Tab) 40 meq PO BID [facility] Stop: 07/05/17 10:01 Last Admin: 07/05/17 09:09 Dose: 40 meq Potassium Phos/Sodium Phos (Neutra-Phos) 1 pkt PO TID [facility] Stop: 07/05/17 10:01 Last Admin: 07/04/17 17:25 Dose: 1 pkt Saliva Substitute (First Magic Mouthwash) 1 ml PO ACHS [facility] Last Admin: 07/04/17 22:52 Dose: 1 ml - Labs Labs: 07/05/17 06:51 07/05/17 06:51 - Constitutional Appears: Toxic - Head Exam Head Exam: NORMAL INSPECTION, NORMOCEPHALIC - Eye Exam Eye Exam: EOMI, Normal appearance, PERRL Pupil Exam: NORMAL ACCOMODATION - ENT Exam ENT Exam: Mucous Membranes Dry Additional comments: Unable to visualize oropharynx, tonsils inflammed, LAD bilaterally - Respiratory Exam Respiratory Exam: Clear to Ausculation Bilateral, NORMAL BREATHING PATTERN. absent: Decreased Breath Sounds, Wheezes - Cardiovascular Exam Cardiovascular Exam: Tachycardia - GI/Abdominal Exam GI & Abdominal Exam: Soft, Normal Bowel Sounds. absent: Distended, Tenderness - Extremities Exam Extremities Exam: Normal Inspection. absent: Pedal Edema, Tenderness - Neurological Exam Neurological Exam: Alert, Awake, Oriented x3 - Psychiatric Exam Psychiatric exam: Anxious - Skin Skin Exam: Diaphoretic, Warm Assessment and Plan - Assessment and Plan (Free Text) Plan: Neutropenic Fever ID consulted (Castillo) - recs appreciated Heme/Onc consulted (To) - recs appreciated - plan for bone marrow biopsy Neutropenic precautions Labs/Imaging: Lactate: 0.7 Blood Culture Throat culture Urine culture [place]: negative Strep: negative Flu: negative Group A strep - negative Peripheral Smear - normal HIV Screen - negative HIV reflex - pending Monospot - pending EBV- pending [place] - pending Anaplasma - pending Lyme - pending NS @ 100 Zosyn 4.5 g IV Q6h, Doxy 100mg IVP Q12H Granix 480 mcg SC Once Tylenol Q6H x 4 doses for fever, Zofran PRN nausea Odynophagia ENT consulted - Dr. Kelly- help appreciated - plan for biopsy 07/08/17 CLD - as patient tolerates Imaging: CXR - No active pulmonary disease. (Noted narrowing in airway) CT Neck Soft Tissue: 1. Findings are most compatible with acute tonsillitis with reactive/ infectious upper cervical lymphadenopathy. Abnormal fluid density is identified in the tonsils without definite evidence for drainable peritonsillar abscess. 2. Severe adenoid hypertrophy. CT Sinuses: 1. Mild chronic ethmoid, maxillary and sphenoid sinusitis with retention cysts/ polyps in the left maxillary sinus and left sphenoid chamber. No acute sinusitis. 2. Incompletely imaged low-density lesion in the right frontal lobe. A dedicated MRI of the brain without and with intravenous contrast is recommended for further evaluation. Medications: Cepacol PRN. magic mouth wash PRN Zosyn 4.5 g IV Q6h, Doxy 100mg IVP Q12H Chronic Sinusitis Zosyn 4.5 g IV Q6h, Doxy 100mg IVP Q12H Hyperbilirubinemia Hep panel negative Abdominal US - hepatomegally Prophylactic measures Pepcid Ambulates DW Elizabeth Vanessa DO, PGY-1 <Ashvin Griggs H - Last Filed: 07/05/17 17:43> Objective - Vital Signs/Intake and Output Vital Signs (last 24 hours): Temp Pulse Resp BP Pulse Ox 102 F H 145 H 22 116/67 100 07/05/17 16:24 07/05/17 15:00 07/05/17 15:00 07/05/17 15:00 07/05/17 15:00 Intake and Output: 07/05/17 07/05/17 06:59 18:59 Intake Total 1000 2550 Output Total 1000 Balance 1000 1550 - Medications Medications: Current Medications Acetaminophen (Tylenol 325mg Tab) 650 mg PO Q6H [facility] Stop: 07/06/17 04:01 Last Admin: 07/05/17 16:24 Dose: 650 mg Benzocaine/Menthol (Cepacol Sore Throat) 1 scott MT Q2 PRN PRN Reason: Sore Throat Last Admin: 07/04/17 12:00 Dose: 1 scott Famotidine (Pepcid) 20 mg PO BID [facility] Last Admin: 07/05/17 09:12 Dose: 20 mg Piperacillin Sod/Tazobactam Sod (Zosyn 4.5 Gm Iv Premix) 4.5 gm in 100 mls @ 200 mls/hr IVPB Q6H [facility] Last Admin: 07/05/17 16:25 Dose: 200 mls/hr Sodium Chloride (Sodium Chloride 0.9%) 1,000 mls @ 100 mls/hr IV .Q10H [facility] Last Admin: 07/05/17 16:14 Dose: 100 mls/hr Doxycycline Hyclate 100 mg/ (Sodium Chloride) 100 mls @ 100 mls/hr IVPB Q12H [facility] Last Admin: 07/05/17 13:09 Dose: 100 mls/hr Ondansetron HCl (Zofran Inj) 4 mg IVP Q6 PRN PRN Reason: Nausea/Vomiting Potassium Phos/Sodium Phos (Neutra-Phos) 1 pkt PO TIDCC [facility] Last Admin: 07/05/17 12:23 Dose: 1 pkt Saliva Substitute (First Magic Mouthwash) 1 ml PO ACHS [facility] Last Admin: 07/05/17 16:46 Dose: 1 ml - Labs Labs: 07/05/17 06:51 07/05/17 06:51 Attending/Attestation - Attestation I have personally seen and examined this patient.: Yes I have fully participated in the care of the patient.: Yes I have reviewed all pertinent clinical information, including history, physical exam and plan: Yes Notes (Text): Medical Attending: Patient was seen and examined by me as well, I agree with the above note by the resident The patient reported some decrease in the neck pain today however filter press tender head. He was able to take some sips of water, however still a lot of pain when eating. He also still has the high fevers despite administration of tylenol. On exam he was able to open his mouth and stick out his tounge today. The WBC counts remain 0.2 despite intinally getting filgrastim before. The culture remain negative at this time. He remains on IV abx. He had a CT scan of the soft tissue of the neck yesterday and there reported cervical lymphadenopathy as well as tonsillitis. Because the neck pain as well as neutropenia our concerns for possible lymphoma and leukemia. Per my discussion with family there is a family history of leukemia that they are aware of. The family member is interested in possible transfer to another facility and we discussed about this. Patient is not in any acute distress at this time. I explained to the family that it maybe difficult to transfer over to another medical facility. Nevertheless family asked if a transfer to another medical facility was possible and gave me a number to call [phone] Chris Mendez and I have called this number and left a message with the answering service over there. At this time the ENT is planning on a biopsy this Tuesday. I am being told that hematology oncology is planning on a bone marrow biopsy at some point however I currently do not see a note or consult note at the moment. thank you Ashvin Griggs
[2017-07-05] MEDS ORDERED: Pneumococcal 23-Valent Vaccine IM ONE (10:00)
[2017-07-05] MEDS ORDERED: Influenza Vaccine 60 mcg/0.5 mL SYR (4YR UP) IM ONE (10:00)
[2017-07-05] MEDS ORDERED: Potassium Chloride 20 mEq/15 ml LIQ UD PO ONE (10:00)
--- NOTE | 2017-07-05 10:26 | CON ---
DATE: 07/05/2017 REASON FOR CONSULTATION: Nasal congestion. HISTORY OF PRESENT ILLNESS: This is a 21-year-old male with 3-day history of nasal congestion constant, moderate in intensity with no nasal discharge, no headache. PAST MEDICAL HISTORY: As noted in the chart by me. MEDICATIONS: As noted in the chart by me. PHYSICAL EXAMINATION: HEAD: Atraumatic, normocephalic. FACE: Good facial movements bilaterally. CONSTITUTIONAL: Well fed, well nourished. COMMUNICATION: Communicates well appropriately. EXTERNAL NOSE AND EARS: No masses. No lesions. No erythema. No edema. INTERNAL NOSE: No masses. No lesions. No erythema. No edema. ORAL CAVITY AND OROPHARYNX: No masses. No lesions. No erythema. No edema. NECK: Supple. THYROID: No thyromegaly. No goiter. LYMPH NODES: No lymphadenopathy of the neck. 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 ASSESSMENT: 1. Deviated septum. 2. Nasopharyngeal mass. PLAN: Do the nasopharyngeal mass biopsy this Tuesday. Baltazar Kelly MD
[2017-07-05 10:28] LABS: EOS % 3.9 % (0.0-4.0); LYMPH % 82.6 % (20.0-40.0); MONO % 13.1 % (0.0-10.0)
--- NOTE | 2017-07-05 11:51 | CP.PCM.PN ---
Subjective - Date & Time of Evaluation Date of Evaluation: 07/05/17 Time of Evaluation: 07:00 - Subjective Subjective: feels ok await heme onc and ent eval no abscess still neutropenic cultures neg thus far Objective - Vital Signs/Intake and Output Vital Signs (last 24 hours): Temp Pulse Resp BP Pulse Ox 99 F 145 H 20 104/61 98 07/05/17 11:48 07/05/17 07:51 07/05/17 07:51 07/05/17 07:51 07/05/17 07:51 Intake and Output: 07/05/17 07/05/17 06:59 18:59 Intake Total 1000 1150 Balance 1000 1150 - Medications Medications: Current Medications Acetaminophen (Tylenol 325mg Tab) 650 mg PO Q6H [facility] Stop: 07/06/17 04:01 Last Admin: 07/05/17 10:23 Dose: 650 mg Benzocaine/Menthol (Cepacol Sore Throat) 1 scott MT Q2 PRN PRN Reason: Sore Throat Last Admin: 07/04/17 12:00 Dose: 1 scott Famotidine (Pepcid) 20 mg PO BID [facility] Last Admin: 07/05/17 09:12 Dose: 20 mg Piperacillin Sod/Tazobactam Sod (Zosyn 4.5 Gm Iv Premix) 4.5 gm in 100 mls @ 200 mls/hr IVPB Q6H [facility] Last Admin: 07/05/17 10:25 Dose: 200 mls/hr Sodium Chloride (Sodium Chloride 0.9%) 1,000 mls @ 100 mls/hr IV .Q10H [facility] Last Admin: 07/05/17 05:51 Dose: Not Given Doxycycline Hyclate 100 mg/ (Sodium Chloride) 100 mls @ 100 mls/hr IVPB Q12H [facility] Last Admin: 07/05/17 00:13 Dose: 100 mls/hr Ondansetron HCl (Zofran Inj) 4 mg IVP Q6 PRN PRN Reason: Nausea/Vomiting Potassium Phos/Sodium Phos (Neutra-Phos) 1 pkt PO TIDCC [facility] Last Admin: 07/05/17 10:19 Dose: 1 pkt Saliva Substitute (First Magic Mouthwash) 1 ml PO ACHS [facility] Last Admin: 07/05/17 08:11 Dose: 1 ml - Labs Labs: 07/05/17 06:51 07/05/17 06:51 - Constitutional Appears: Non-toxic, Chronically Ill - Head Exam Head Exam: NORMOCEPHALIC - Eye Exam Eye Exam: absent: Scleral icterus - ENT Exam ENT Exam: Normal External Ear Exam - Neck Exam Neck Exam: Lymphadenopathy - Respiratory Exam Respiratory Exam: absent: Decreased Breath Sounds - Cardiovascular Exam Cardiovascular Exam: REGULAR RHYTHM, +S1, +S2 - GI/Abdominal Exam GI & Abdominal Exam: Distended, Soft - Rectal Exam Rectal Exam: Deferred - Exam Exam: NORMAL INSPECTION - Extremities Exam Extremities Exam: absent: Pedal Edema - Back Exam Back Exam: absent: CVA tenderness (L), CVA tenderness (R) - Neurological Exam Neurological Exam: Alert, Awake, Oriented x3 - Psychiatric Exam Psychiatric exam: Anxious, Depressed - Skin Skin Exam: Dry Assessment and Plan (1) Influenza-like illness Status: Acute (2) Leukopenia Status: Acute (3) Neutropenia Status: Acute (4) Tachycardia Status: Acute - Assessment and Plan (Free Text) Assessment: R/O LEUKEMIA CONT IV ANTIBIOTICS
--- NOTE | 2017-07-05 11:57 | US ---
HISTORY: transaminitis, evaluate liver and gallbladder COMPARISON: None available. TECHNIQUE: Sonographic evaluation of the right upper quadrant of the abdomen. FINDINGS: Examination limited by habitus. LIVER: Measures approximately 20.1 cm. Echogenic liver may be seen in setting of hepatic parenchymal disease or fatty infiltration. No focal hepatic mass identified. The main portal vein appears patent with normal directional flow. No intrahepatic bile duct dilatation. GALLBLADDER: No gallstones. No gallbladder wall thickening or pericholecystic edema. Negative sonographic Avery's sign as assessed by the bakery products checker. COMMON BILE DUCT: Measures 4 mm. PANCREAS: Not well-visualized. RIGHT KIDNEY: Measures 11.9 x 4.9 x 6.3 cm. No obstructing calculus or hydronephrosis identified. AORTA: Limited visualization appears grossly unremarkable. IVC: Limited visualization appears grossly unremarkable. OTHER FINDINGS: None . IMPRESSION: Hepatomegaly. Echogenic liver may be seen in setting of hepatic parenchymal disease or fatty infiltration.
[2017-07-05 16:23] VITALS: BP 116/67; RESP 22; O2SAT 100
--- NOTE | 2017-07-05 17:21 | RAD ---
HISTORY: shortness of breath COMPARISON: Chest x-ray performed 07/03/17 TECHNIQUE: Chest, one view. FINDINGS: Examination limited by habitus. LUNGS: No focal consolidation. Please note that chest x-ray has limited sensitivity for the detection of pulmonary masses. PLEURA: No significant pleural effusion identified. No definite pneumothorax . CARDIOVASCULAR: The cardiomediastinal silhouette appears within normal limits of size. OSSEOUS STRUCTURES: No acute osseous abnormality identified. VISUALIZED UPPER ABDOMEN: Unremarkable. OTHER FINDINGS: None. IMPRESSION: No focal consolidation, significant pleural effusion, or definite pneumothorax identified.
--- NOTE | 2017-07-05 17:27 | RAD ---
PROCEDURE: Cervical Spine Radiographs. Two views. HISTORY: Pain. COMPARISON: None available. FINDINGS: Portions of the upper cervical spine obscured by patient's earrings on lateral view. BONES: Cervical spine is not well-visualized beyond C6 on the lateral view. Cervical spine is not well-visualized beyond C6 on the lateral view. Straightening of the normal cervical lordosis may be related to muscle spasm or positioning. No listhesis. No acute displaced fracture identified. DISC SPACES: Unremarkable. SOFT TISSUES: Unremarkable. No prevertebral soft tissue swelling. OTHER FINDINGS: None. IMPRESSION: Straightening of the normal cervical lordosis may be related to muscle spasm or positioning.
[2017-07-05 19:05] VITALS: TEMP 99.3
--- NOTE | 2017-07-05 20:04 | CP.PCM.DIS ---
<EmmaSherrie - Last Filed: 07/05/17 20:02> Provider - Provider Date of Admission: 07/03/17 20:53 Attending physician: Ashvin Griggs DO Consults: Dr. Leticia Davey Time Spent in preparation of Discharge (in minutes): 35 Hospital Course - Lab Results Lab Results: Micro Results 07/03/17 Unknown Urine,Clean Catch Urine Culture - Final No Growth (<1,000 CFU/ML) 07/03/17 19:00 Blood Blood Culture - Preliminary NO GROWTH AFTER 24 HOURS 07/03/17 18:30 Blood Blood Culture - Preliminary NO GROWTH AFTER 24 HOURS 07/03/17 18:06 Throat Group A Strep Throat Culture - Final NO BETA STREP GROUP A ISOLATED. Most Recent Lab Values WBC 0.2 K/uL (4.8-10.8) L* 07/05/17 06:51 RBC 4.06 Mil/uL (4.40-5.90) L 07/05/17 06:51 Hgb 13.0 g/dL (12.0-18.0) 07/05/17 06:51 Hct 37.5 % (35.0-51.0) 07/05/17 06:51 MCV 92.3 fL (80.0-94.0) 07/05/17 06:51 MCH 32.0 pg (27.0-31.0) H 07/05/17 06:51 MCHC 34.7 g/dL (33.0-37.0) 07/05/17 06:51 RDW 12.4 % (11.5-14.5) 07/05/17 06:51 Plt Count 208 K/uL (130-400) 07/05/17 06:51 MPV 8.1 fL (7.2-11.7) 07/05/17 06:51 Neut % (Auto) 0.4 % (50.0-75.0) L 07/05/17 06:51 Lymph % (Auto) 82.6 % (20.0-40.0) H 07/05/17 06:51 [place] % (Auto) 13.1 % (0.0-10.0) H 07/05/17 06:51 Eos % (Auto) 3.9 % (0.0-4.0) 07/05/17 06:51 Baso % (Auto) 0.0 % (0.0-2.0) 07/05/17 06:51 Neut # 0.0 K/uL (1.8-7.0) L 07/05/17 06:51 Lymph # 0.0 K/uL (1.0-4.3) L 07/05/17 06:51 [place] # 0.0 K/uL (0.0-0.8) 07/05/17 06:51 Eos # 0.0 K/uL (0.0-0.7) 07/05/17 06:51 Baso # 0.0 K/uL (0.0-0.2) 07/05/17 06:51 Total Counted Cancelled 07/04/17 07:11 Neutrophils % (Manual) 0 % (50-75) L 07/04/17 16:40 Band Neutrophils % Cancelled 07/04/17 07:11 Lymphocytes % (Manual) 91 % (20-40) H 07/04/17 16:40 Reactive Lymphs % 5 % (0-0) H 07/04/17 16:40 Monocytes % (Manual) 4 % (0-10) 07/04/17 16:40 Eosinophils % (Manual) Cancelled 07/04/17 07:11 Basophils % (Manual) Cancelled 07/04/17 07:11 Metamyelocytes % Cancelled 07/04/17 07:11 Myelocytes % Cancelled 07/04/17 07:11 Promyelocytes % Cancelled 07/04/17 07:11 Blast Cells % Cancelled 07/04/17 07:11 Plasma Cell % (Manual) Cancelled 07/04/17 07:11 Nucleated RBC % Cancelled 07/04/17 07:11 Hypersegmented Polys Cancelled 07/04/17 07:11 Smudge Cells Cancelled 07/04/17 07:11 Toxic Granulation Cancelled 07/04/17 07:11 Dohle Bodies Cancelled 07/04/17 07:11 Malou Rods Cancelled 07/04/17 07:11 Platelet Estimate Normal (NORMAL) 07/04/17 16:40 Plt Clumps, EDTA Present 07/03/17 19:42 Large Platelets Present 07/03/17 19:42 Giant Platelets Present 07/03/17 19:42 RBC Morphology Cancelled 07/04/17 07:11 Polychromasia Cancelled 07/04/17 07:11 Hypochromasia (manual) Cancelled 07/04/17 07:11 Poikilocytosis (manual Slight 07/04/17 16:40 Basophilic Stippling Cancelled 07/04/17 07:11 Anisocytosis (manual) Slight 07/04/17 16:40 Microcytosis (manual) Cancelled 07/04/17 07:11 Macrocytosis (manual) Slight 07/04/17 16:40 Spherocytes Cancelled 07/04/17 07:11 Sickle Cells Cancelled 07/04/17 07:11 Target Cells Cancelled 07/04/17 07:11 Tear Drop Cells Slight 07/04/17 16:40 Ovalocytes Cancelled 07/04/17 07:11 Stomatocytes Cancelled 07/04/17 07:11 Helmet Cells Cancelled 07/04/17 07:11 [place] Bodies Cancelled 07/04/17 07:11 Krishna Cells Cancelled 07/04/17 07:11 Acanthocytes (Spur) Cancelled 07/04/17 07:11 Rouleaux Cancelled 07/04/17 07:11 Schistocytes Cancelled 07/04/17 07:11 Smear Path Review 07/03/17 19:42 Puncture Site Rr 07/03/17 23:41 pCO2 29 mm/Hg (35-45) L 07/03/17 23:41 pO2 112 mm/Hg (80-100) H 07/03/17 23:41 HCO3 21.1 mmol/L (21-28) 07/03/17 23:41 ABG pH 7.41 (7.35-7.45) 07/03/17 23:41 ABG Total CO2 19.3 mmol/L (22-28) L 07/03/17 23:41 ABG O2 Saturation 99.2 % (95-98) H 07/03/17 23:41 ABG Base Excess -4.9 mmol/L (-2.0-3.0) L 07/03/17 23:41 ABG Hemoglobin 14.4 g/dL (11.7-17.4) 07/03/17 23:41 ABG Carboxyhemoglobin 1.5 % (0.5-1.5) 07/03/17 23:41 POC ABG HHb (Measured) 0.8 % (0.0-5.0) 07/03/17 23:41 ABG Methemoglobin 1.1 % (0.0-3.0) 07/03/17 23:41 Ruperto Test Pos 07/03/17 23:41 A-a O2 Difference 1.0 mm/Hg 07/03/17 23:41 Respiratory Index 0 07/03/17 23:41 Hgb O2 Saturation 96.6 % (95.0-98.0) 07/03/17 23:41 Liter Flow 0 07/03/17 23:41 FiO2 21.0 % 07/03/17 23:41 Sodium 134 mmol/L (132-148) 07/05/17 06:51 Potassium 3.2 mmol/L (3.6-5.2) L 07/05/17 06:51 Chloride 102 mmol/L (98-107) 07/05/17 06:51 Carbon Dioxide 22 mmol/L (22-30) 07/05/17 06:51 Anion Gap 13 (10-20) 07/05/17 06:51 BUN 10 mg/dL (9-20) 07/05/17 06:51 Creatinine 1.2 mg/dL (0.8-1.5) 07/05/17 06:51 Est GFR ( Amer) > 60 07/05/17 06:51 Est GFR (Non-Af Amer) > 60 07/05/17 06:51 Random Glucose 123 mg/dL (75-110) H 07/05/17 06:51 Lactic Acid 0.7 mmol/L (0.7-2.1) 07/03/17 21:13 Calcium 7.6 mg/dl (8.6-10.4) L 07/05/17 06:51 Phosphorus 1.1 mg/dL (2.5-4.5) L 07/05/17 06:51 Magnesium 1.7 mg/dL (1.6-2.3) 07/05/17 06:51 Total Bilirubin 1.8 mg/dL (0.2-1.3) H 07/05/17 06:51 Direct Bilirubin 1.1 mg/dL (0.0-0.4) H 07/03/17 23:03 AST 12 U/L (17-59) L D 07/05/17 06:51 ALT 38 U/L (21-72) 07/05/17 06:51 Alkaline Phosphatase 29 U/L (38-126) L D 07/05/17 06:51 Lactate Dehydrogenase 403 U/L (313-618) 07/03/17 23:03 Total Protein 7.0 g/dL (6.3-8.3) 07/05/17 06:51 Albumin 3.1 g/dL (3.5-5.0) L 07/05/17 06:51 Globulin 3.9 gm/dL (2.2-3.9) 07/05/17 06:51 Albumin/Globulin Ratio 0.8 (1.0-2.1) L 07/05/17 06:51 Urine Color Yellow (YELLOW) 07/03/17 19:10 Urine Clarity Clear (Clear) 07/03/17 19:10 Urine pH 7.0 (5.0-8.0) 07/03/17 19:10 Ur Specific Fox 1.029 (1.003-1.030) 07/03/17 19:10 Urine Protein 2+ mg/dL (NEGATIVE) H 07/03/17 19:10 Urine Glucose (UA) Normal mg/dL (Normal) 07/03/17 19:10 Urine Ketones Trace mg/dL (NEGATIVE) 07/03/17 19:10 Urine Blood Negative (NEGATIVE) 07/03/17 19:10 Urine Nitrate Negative (NEGATIVE) 07/03/17 19:10 Urine Bilirubin Negative (NEGATIVE) 07/03/17 19:10 Urine Urobilinogen 4.0 mg/dL (0.2-1.0) 07/03/17 19:10 Ur Leukocyte Esterase Neg Luis/uL (Negative) 07/03/17 19:10 Urine WBC (Auto) 1 /hpf (0-5) 07/03/17 19:10 Urine RBC (Auto) 3 /hpf (0-3) 07/03/17 19:10 Urine Bacteria Rare (<OCC) 07/03/17 19:10 Hepatitis A IgM Ab Negative (NEGATIVE) 07/03/17 23:15 Hep Bs Antigen Negative (NEGATIVE) 07/03/17 23:15 Hep B Core IgM Ab Negative (NEGATIVE) 07/03/17 23:15 Hepatitis C Antibody Negative (NEGATIVE) 07/03/17 23:15 HIV 1&2 Antibody Screen Negative (NEGATIVE) 07/03/17 21:13 Infectious [place] Assay Negative (NEGATIVE) 07/04/17 16:39 Influenza Typ A,B (EIA) Negative for flu a/b (NEGATIVE) 07/03/17 18:06 Grp A Beta Strep Ag Negative (NEGATIVE) 07/03/17 18:06 - Hospital Course Hospital Course: CC: Sore throat HPI: patient is a 21M with no significant PMH who presents c/o sore throat. Patient says he woke up with a sore throat yesterday morning and he describes it as burning 6/10 pain made worse by swallowing. Patient says he has not tried anything that has made it better but he did take tamiflu earlier today. Patient also admits to headache but when questioned further he describes it as frontal and maxillary sinus pain. He also admits to associated fever, chills, weakness, body aches, lower back pain radiating to his hamstrings, dizziness upon standing , palpitations, dyspnea, nausea, and vomiting x1. He denies blood in the vomit and says he vomited up the food he ate. Of note, patient says he recently got a new tattoo and has had another one on the opposite arm for a while. He denies ear pain, changes in vision or hearing, chest pain, cough, abdominal pain, diarrhea, constipation, blood in urine and stool, dysuria, calf pain, LE swelling/numbness/tingling, rashes, easy bruising, recent travel, recent sick contacts, changes in his weight, and tick bites. Hospital course ID consulted (Castillo) Heme/Onc consulted (To) Labs/Imaging: Patient was on zosyn 4.5 g IVQ6H and doxy 100mg IVP Q12H. Patient tested negative for flu, mono, strep, group a strep. Peripheral smear is normal. HIV negative. results pending: HIV reflex, monospot, ebv, herlinda, anaplasma, lyme. Patient also on Granix 480mcg SC once. Placed on neutropenic precautions. CXR - No active pulmonary disease. (Noted narrowing in airway), CT Neck Soft Tissue: shows findings are most compatible with acute tonsillitis with reactive / infectious upper cervical lymphadenopathy. Abnormal fluid density is identified in the tonsils without definite evidence for drainable peritonsillar abscess. 2. Severe adenoid hypertrophy. CT Sinuses showed mild chronic ethmoid, maxillary and sphenoid sinusitis with retention cysts/ polyps in the left maxillary sinus and left sphenoid chamber. No acute sinusitis. Incompletely imaged low-density lesion in the right frontal lobe. A dedicated MRI of the brain without and with intravenous contrast is recommended for further evaluation. ENT consulted: Dr. Kelly. Patient signed out AMA. Patient and family going to [facility] with reports from studies done during stay at the hospital. please see MAR for more information - Date & Time of H&P Date of H&P: 07/05/17 Time of H&P: 20:02 Discharge Exam - Head Exam Head Exam: NORMAL INSPECTION, NORMOCEPHALIC - Eye Exam Eye Exam: EOMI, Normal appearance - ENT Exam ENT Exam: Mucous Membranes Moist - Neck Exam Neck exam: Full Rom - Respiratory Exam Respiratory Exam: Decreased Breath Sounds, Rales - Cardiovascular Exam Cardiovascular Exam: Tachycardia, REGULAR RHYTHM, +S1, +S2 - GI/Abdominal Exam GI & Abdominal Exam: Soft, Unremarkable - Extremities Exam Extremities exam: full ROM - Back Exam Back exam: FULL ROM - Neurological Exam Neurological exam: Alert, Normal Gait, Oriented x3 - Skin Skin Exam: Dry, Normal Color, Warm Discharge Plan - Follow Up Plan Condition: CRITICAL Disposition: AGAINST MEDICAL ADVICE <Ashvin Griggs - Last Filed: 07/05/17 20:25> Provider - Provider Date of Admission: 07/03/17 20:53 Attending physician: Ashvin Griggs DO Hospital Course - Lab Results Lab Results: Micro Results 07/03/17 Unknown Urine,Clean Catch Urine Culture - Final No Growth (<1,000 CFU/ML) 07/03/17 19:00 Blood Blood Culture - Preliminary NO GROWTH AFTER 24 HOURS 07/03/17 18:30 Blood Blood Culture - Preliminary NO GROWTH AFTER 24 HOURS 07/03/17 18:06 Throat Group A Strep Throat Culture - Final NO BETA STREP GROUP A ISOLATED. Most Recent Lab Values WBC 0.2 K/uL (4.8-10.8) L* 07/05/17 06:51 RBC 4.06 Mil/uL (4.40-5.90) L 07/05/17 06:51 Hgb 13.0 g/dL (12.0-18.0) 07/05/17 06:51 Hct 37.5 % (35.0-51.0) 07/05/17 06:51 MCV 92.3 fL (80.0-94.0) 07/05/17 06:51 MCH 32.0 pg (27.0-31.0) H 07/05/17 06:51 MCHC 34.7 g/dL (33.0-37.0) 07/05/17 06:51 RDW 12.4 % (11.5-14.5) 07/05/17 06:51 Plt Count 208 K/uL (130-400) 07/05/17 06:51 MPV 8.1 fL (7.2-11.7) 07/05/17 06:51 Neut % (Auto) 0.4 % (50.0-75.0) L 07/05/17 06:51 Lymph % (Auto) 82.6 % (20.0-40.0) H 07/05/17 06:51 [place] % (Auto) 13.1 % (0.0-10.0) H 07/05/17 06:51 Eos % (Auto) 3.9 % (0.0-4.0) 07/05/17 06:51 Baso % (Auto) 0.0 % (0.0-2.0) 07/05/17 06:51 Neut # 0.0 K/uL (1.8-7.0) L 07/05/17 06:51 Lymph # 0.0 K/uL (1.0-4.3) L 07/05/17 06:51 [place] # 0.0 K/uL (0.0-0.8) 07/05/17 06:51 Eos # 0.0 K/uL (0.0-0.7) 07/05/17 06:51 Baso # 0.0 K/uL (0.0-0.2) 07/05/17 06:51 Total Counted Cancelled 07/04/17 07:11 Neutrophils % (Manual) 0 % (50-75) L 07/04/17 16:40 Band Neutrophils % Cancelled 07/04/17 07:11 Lymphocytes % (Manual) 91 % (20-40) H 07/04/17 16:40 Reactive Lymphs % 5 % (0-0) H 07/04/17 16:40 Monocytes % (Manual) 4 % (0-10) 07/04/17 16:40 Eosinophils % (Manual) Cancelled 07/04/17 07:11 Basophils % (Manual) Cancelled 07/04/17 07:11 Metamyelocytes % Cancelled 07/04/17 07:11 Myelocytes % Cancelled 07/04/17 07:11 Promyelocytes % Cancelled 07/04/17 07:11 Blast Cells % Cancelled 07/04/17 07:11 Plasma Cell % (Manual) Cancelled 07/04/17 07:11 Nucleated RBC % Cancelled 07/04/17 07:11 Hypersegmented Polys Cancelled 07/04/17 07:11 Smudge Cells Cancelled 07/04/17 07:11 Toxic Granulation Cancelled 07/04/17 07:11 Dohle Bodies Cancelled 07/04/17 07:11 Malou Rods Cancelled 07/04/17 07:11 Platelet Estimate Normal (NORMAL) 07/04/17 16:40 Plt Clumps, EDTA Present 07/03/17 19:42 Large Platelets Present 07/03/17 19:42 Giant Platelets Present 07/03/17 19:42 RBC Morphology Cancelled 07/04/17 07:11 Polychromasia Cancelled 07/04/17 07:11 Hypochromasia (manual) Cancelled 07/04/17 07:11 Poikilocytosis (manual Slight 07/04/17 16:40 Basophilic Stippling Cancelled 07/04/17 07:11 Anisocytosis (manual) Slight 07/04/17 16:40 Microcytosis (manual) Cancelled 07/04/17 07:11 Macrocytosis (manual) Slight 07/04/17 16:40 Spherocytes Cancelled 07/04/17 07:11 Sickle Cells Cancelled 07/04/17 07:11 Target Cells Cancelled 07/04/17 07:11 Tear Drop Cells Slight 07/04/17 16:40 Ovalocytes Cancelled 07/04/17 07:11 Stomatocytes Cancelled 07/04/17 07:11 Helmet Cells Cancelled 07/04/17 07:11 [place] Bodies Cancelled 07/04/17 07:11 Krishna Cells Cancelled 07/04/17 07:11 Acanthocytes (Spur) Cancelled 07/04/17 07:11 Rouleaux Cancelled 07/04/17 07:11 Schistocytes Cancelled 07/04/17 07:11 Smear Path Review 07/03/17 19:42 Puncture Site Rr 07/03/17 23:41 pCO2 29 mm/Hg (35-45) L 07/03/17 23:41 pO2 112 mm/Hg (80-100) H 07/03/17 23:41 HCO3 21.1 mmol/L (21-28) 07/03/17 23:41 ABG pH 7.41 (7.35-7.45) 07/03/17 23:41 ABG Total CO2 19.3 mmol/L (22-28) L 07/03/17 23:41 ABG O2 Saturation 99.2 % (95-98) H 07/03/17 23:41 ABG Base Excess -4.9 mmol/L (-2.0-3.0) L 07/03/17 23:41 ABG Hemoglobin 14.4 g/dL (11.7-17.4) 07/03/17 23:41 ABG Carboxyhemoglobin 1.5 % (0.5-1.5) 07/03/17 23:41 POC ABG HHb (Measured) 0.8 % (0.0-5.0) 07/03/17 23:41 ABG Methemoglobin 1.1 % (0.0-3.0) 07/03/17 23:41 Ruperto Test Pos 07/03/17 23:41 A-a O2 Difference 1.0 mm/Hg 07/03/17 23:41 Respiratory Index 0 07/03/17 23:41 Hgb O2 Saturation 96.6 % (95.0-98.0) 07/03/17 23:41 Liter Flow 0 07/03/17 23:41 FiO2 21.0 % 07/03/17 23:41 Sodium 134 mmol/L (132-148) 07/05/17 06:51 Potassium 3.2 mmol/L (3.6-5.2) L 07/05/17 06:51 Chloride 102 mmol/L (98-107) 07/05/17 06:51 Carbon Dioxide 22 mmol/L (22-30) 07/05/17 06:51 Anion Gap 13 (10-20) 07/05/17 06:51 BUN 10 mg/dL (9-20) 07/05/17 06:51 Creatinine 1.2 mg/dL (0.8-1.5) 07/05/17 06:51 Est GFR ( Amer) > 60 07/05/17 06:51 Est GFR (Non-Af Amer) > 60 07/05/17 06:51 Random Glucose 123 mg/dL (75-110) H 07/05/17 06:51 Lactic Acid 0.7 mmol/L (0.7-2.1) 07/03/17 21:13 Calcium 7.6 mg/dl (8.6-10.4) L 07/05/17 06:51 Phosphorus 1.1 mg/dL (2.5-4.5) L 07/05/17 06:51 Magnesium 1.7 mg/dL (1.6-2.3) 07/05/17 06:51 Total Bilirubin 1.8 mg/dL (0.2-1.3) H 07/05/17 06:51 Direct Bilirubin 1.1 mg/dL (0.0-0.4) H 07/03/17 23:03 AST 12 U/L (17-59) L D 07/05/17 06:51 ALT 38 U/L (21-72) 07/05/17 06:51 Alkaline Phosphatase 29 U/L (38-126) L D 07/05/17 06:51 Lactate Dehydrogenase 403 U/L (313-618) 07/03/17 23:03 Total Protein 7.0 g/dL (6.3-8.3) 07/05/17 06:51 Albumin 3.1 g/dL (3.5-5.0) L 07/05/17 06:51 Globulin 3.9 gm/dL (2.2-3.9) 07/05/17 06:51 Albumin/Globulin Ratio 0.8 (1.0-2.1) L 07/05/17 06:51 Urine Color Yellow (YELLOW) 07/03/17 19:10 Urine Clarity Clear (Clear) 07/03/17 19:10 Urine pH 7.0 (5.0-8.0) 07/03/17 19:10 Ur Specific [place] 1.029 (1.003-1.030) 07/03/17 19:10 Urine Protein 2+ mg/dL (NEGATIVE) H 07/03/17 19:10 Urine Glucose (UA) Normal mg/dL (Normal) 07/03/17 19:10 Urine Ketones Trace mg/dL (NEGATIVE) 07/03/17 19:10 Urine Blood Negative (NEGATIVE) 07/03/17 19:10 Urine Nitrate Negative (NEGATIVE) 07/03/17 19:10 Urine Bilirubin Negative (NEGATIVE) 07/03/17 19:10 Urine Urobilinogen 4.0 mg/dL (0.2-1.0) 07/03/17 19:10 Ur Leukocyte Esterase Neg Luis/uL (Negative) 07/03/17 19:10 Urine WBC (Auto) 1 /hpf (0-5) 07/03/17 19:10 Urine RBC (Auto) 3 /hpf (0-3) 07/03/17 19:10 Urine Bacteria Rare (<OCC) 07/03/17 19:10 Hepatitis A IgM Ab Negative (NEGATIVE) 07/03/17 23:15 Hep Bs Antigen Negative (NEGATIVE) 07/03/17 23:15 Hep B Core IgM Ab Negative (NEGATIVE) 07/03/17 23:15 Hepatitis C Antibody Negative (NEGATIVE) 07/03/17 23:15 HIV 1&2 Antibody Screen Negative (NEGATIVE) 07/03/17 21:13 Infectious [place] Assay Negative (NEGATIVE) 07/04/17 16:39 Influenza Typ A,B (EIA) Negative for flu a/b (NEGATIVE) 07/03/17 18:06 Grp A Beta Strep Ag Negative (NEGATIVE) 07/03/17 18:06 Attending/Attestation - Attestation I have personally seen and examined this patient.: Yes I have fully participated in the care of the patient.: Yes I have reviewed all pertinent clinical information, including history, physical exam and plan: Yes Notes (Text): 07/05/17 20:21 Medical Attending: I came back down and saw patient and family members again. The patient as well as family members really wanted to go to a different medical facility and they signed the AMA forms. I gave them copies of the CT scan of the soft tissues of the neck as well as the most recent lab work and my notes. Also provided to them were a copy of the H&P when he came here two days ago. Also because patient is still neutropenic, he was given an N95 mask to go with. I wished them the best. thank you Ashvin Griggs
[2017-07-05 20:40] LABS: LYME IGG NEGATIVE (NEGATIVE); LYME IGM NEGATIVE (NEGATIVE)
--- NOTE | 2017-07-06 20:26 | CON ---
DATE: 07/05/2017 LOCATION: The patient was seen on 07/05/2017 while rounding at the [facility]. The patient was in room #350, bed A. HISTORY OF PRESENT ILLNESS: Chart, imaging study, labs, and peripheral smear, etc. reviewed in great detail and discussed with the patient and the primary care, Dr. Ashvin Griggs. Mr. Nazario is a 21-year-old gentleman who was admitted with fever, sore throat, and pain. The patient was placed on antibiotics for possible acute tonsillitis. The patient has been running fever for past 2 days. The patient was found to have a normal hemoglobin and normal platelet count; however, his WBC count was very low, 0.2. The patient has severe neutropenia and leukocytopenia. I told the medical team to place the patient with neutropenic precautions. I also discussed the case with ENT surgeon, Dr. Kelly, who is planning today, 07/05/2017, to perform the surgery on him for possible tonsillar abscess. CT scan of the neck showed acute tonsillitis and adenoids. The patient had normal renal function, BUN and creatinine. The patient had normal liver functions; however, his bilirubin was 2, was mildly elevated. The patient has negative hepatitis profile and HIV testing. The patient denies any headache or neurological symptoms. The patient denies any chest pain, shortness of breath, cough, or palpitations. The patient denies any acute nausea, vomiting, diarrhea, or abdominal pain. The patient denies any back pain. The patient denies any hemorrhage or rectal bleed. The patient denies any hemorrhages in the skin. REVIEW OF SYSTEMS: Otherwise unremarkable, as noted above. PHYSICAL EXAMINATION: GENERAL: The patient is alert, awake, oriented, and ambulatory. He sits comfortable in the bed. VITAL SIGNS: The patient is afebrile. Pulse is 102, respirations 14. HEENT: Unremarkable. Anicteric. NECK: Supple. There are some small nodes that are palpable in the neck. No neck stiffness. CHEST: Bilateral air, no rales or rhonchi. CARDIOVASCULAR: Did not reveal any murmurs. S1, S2 normal. ABDOMEN: Soft and nontender. Bowel sounds present. No palpable hepatosplenomegaly. EXTREMITIES: No clubbing, no cyanosis, no pedal edema. Examination of leg did not reveal any deformity or tenderness. ASSESSMENT AND PLAN: Mr. Nazario is a 21-year-old gentleman who was admitted with fever and possible acute tonsillitis and was found to have severe neutropenia and leukocytopenia with WBC count of 0.2. The etiology of neutropenia needed to be further investigated. I told the patient to have a bone marrow biopsy done on the day when I saw the patient. The procedure, indication, and need for bone marrow biopsy was explained to the patient. The patient stated that he has to discuss with his family and then he refused the procedure at this time. The consequences and differential diagnosis of low white cell count were discussed in great detail with the patient. The patient understood the issues well and continued to refuse the bone marrow biopsy. This was discussed with the medical team and attending, Dr. Ashvin Griggs. The patient will need CT scan of the chest, CT scan of the abdomen. I also recommended that the patient get a serum protein electrophoresis, flow cytometry antibody panel for ruling out PNH (paroxysmal nocturnal hemoglobinuria). The patient will definitely need a bone marrow biopsy if he agrees to rule out acute leukemias or lymphoma. This was discussed in great detail with the team and all involved. We will follow the patient as we go. This morning, when I spoke to Dr. Ashvin Griggs, I was told by him that the patient signed against the medical advice and patient was called from the hospital. I told Dr. Griggs that if he comes back, reconsult me and if he agrees, we can do the bone marrow biopsy as an outpatient. Ermias Molina MD
== END 2017-07-05 19:30 | disposition left against medical advice (07) | DRG 398 ==
LOC: C.ER 17:27 → C.9E 20:53 → C.3T 23:05
PROVIDERS: ADMIT Hospitalist; ATTEND Hospitalist
DX: D70.9 Neutropenia, unspecified (principal); E87.6 Hypokalemia; E80.6 Other disorders of bilirubin metabolism; R50.81 Fever presenting with conditions classified elsewhere; L81.8 Other specified disorders of pigmentation; J11.1 Influenza due to unidentified influenza virus with other respiratory manifestations; R00.0 Tachycardia, unspecified; J34.2 Deviated nasal septum; J32.8 Other chronic sinusitis; R59.0 Localized enlarged lymph nodes